=== PATIENT | female | born 1945 | race Caucasian/White ===

== ENCOUNTER 2019-12-07 09:56 | Outpatient (CLI) | payer MEDICARE, BC, SELFPAY ==
--- NOTE | 2019-12-07 10:09 | XR_ITS ---
WS: [id number] RIGHT HIP HISTORY: RIGHT HIP PAIN COMPARISON: None available. Right hip: No acute fracture or dislocation. Mild osteophytic ridging around the acetabulum. Very sli ght irregularity along the surface of the RIGHT hip. Enthesopathy at the greater trochanter. Mild RIGHT SI joint sclerosis. XR/XR hip RT 2-3V wo/w pel* [id number] IMPRESSION: 1. No hip fracture. 2. Mild osteoarthritis RIGHT hip. 3. Mild sacroiliitis, RIGHT.
== END 2019-12-07 09:57 | disposition home or self-care (01) ==
LOC: RADWPI 10:04
PROVIDERS: Family Provider Family Medicine; PCP Nurse Practitioner Family; Visit Provider Nurse Practitioner Family
DX: M16.11 Unilateral primary osteoarthritis, right hip (principal); M46.1 Sacroiliitis, not elsewhere classified
CPT/HCPCS: 73502

== ENCOUNTER 2020-07-12 10:25 | Outpatient (RCR) | payer MEDICARE, BC, SELFPAY | END 2020-07-27 23:59 | disposition home or self-care (01) | LOC: SPT 10:25 | PROVIDERS: PCP Nurse Practitioner Family; Visit Provider Nurse Practitioner Family | DX: R10.31 Right lower quadrant pain (principal) | CPT/HCPCS: 97110; 97161 ==

== ENCOUNTER 2020-07-28 06:00 | Outpatient (RCR) | payer MEDICARE, BC, SELFPAY | END 2020-08-27 23:59 | disposition home or self-care (01) | LOC: SPT 06:00 | PROVIDERS: PCP Nurse Practitioner Family; Visit Provider Nurse Practitioner Family | DX: R10.31 Right lower quadrant pain (principal) | CPT/HCPCS: 97110 ==

== ENCOUNTER 2020-11-22 15:01 | Outpatient (CLI) | payer MEDICARE, SELFPAY ==
--- NOTE | 2020-11-22 15:09 | MM_ITS ---
WS: [id number] BILATERAL DIGITAL SCREENING MAMMOGRAPHY WITH CAD CLINICAL INFORMATION: SCREENING HISTORY: Screening mammogram. No current complaints. COMPARISON: TECHNIQUE: Bilateral CC and MLO views. FINDINGS: The breasts are composed of heterogeneous fibroglandular density tissue, which can limit the detectio n of small underlying mass lesions. No suspicious mass, asymmetry, calcifications, or architectural d istortion. No evidence of malignancy. Dystrophic and lucent centered calcifications. MM/[place] [id number] IMPRESSION: BI-RADS: 2-Benign FOLLOW UP: 1 Year Follow-up Recommend return to annual screening mammography.
== END 2020-11-22 15:02 | disposition home or self-care (01) ==
LOC: RADWPI 15:08
PROVIDERS: PCP Internal Medicine; Visit Provider Internal Medicine
DX: Z12.31 Encounter for screening mammogram for malignant neoplasm of breast (principal)
CPT/HCPCS: 77067

== ENCOUNTER 2021-01-03 09:49 | Outpatient (CLI) | payer MEDICARE, SELFPAY ==
--- NOTE | 2021-01-03 | MR_ITS ---
WS: [id number] MRI LUMBAR SPINE NONCONTRAST HISTORY: DEGENERATIVE DISC DISEASE COMPARISON: 01/09/2016 TECHNIQUE: Sagittal and axial multisequence imaging is submitted. Increase in the cervical lordosis and thoracic kyphosis. Multilevel mild degenerative disc disease an d osteophytosis throughout the cervical and thoracic spines. Mild increase in the lumbar lordosis. L1, L2 and L3 retrolisthesis. Most significant is 5 mm involvin g L2. L5 anterolisthesis by 2 mm is stable. Moderate to severe degenerative disc disease and osteocho ndrosis throughout the lumbar spine in the lower thoracic spine. Mild progression of degenerative clementine nges involving the disc and vertebral body since the prior study. No acute compression fractures. The re is acute appearing edema and soft tissue inflammation surrounding the LEFT L4-5 and L5-S1 facet tiago ints. Conus terminates normally at L1-2 disc level. L1-L2: Diffuse moderate annular disc bulging and osteophytic ridging. Moderate RIGHT foraminal stenos is. Stenosis is due to combination of osteophytes and facet disease. Mild stenosis on the LEFT. L2-L3: Diffuse moderate disc bulging and osteophytic ridging with facet joint arthritis. Effacement o f ventral CSF. Mild central stenosis. Moderate to severe bilateral subarticular and foraminal stenosi s. L3-L4: Moderate diffuse annular disc bulging and osteophytic ridging with facet and ligamentum flavum hypertrophy. Mild central stenosis with severe bilateral subarticular recess foraminal stenosis, LEF T greater than RIGHT. L4-L5: Mild annular disc bulging and osteophytic ridging. Marked facet joint arthritis. Moderate bila teral foraminal stenosis and subarticular recess stenosis. Minimal central stenosis. L5-S1: Mild annular disc bulging, asymmetric to the LEFT. Marked facet joint arthritis. Mild bilatera l foraminal stenosis. Mild atherosclerosis aorta. MR/MR lumbar spine wo con* [id number] IMPRESSION: 1. Advanced degenerative spondylosis throughout the lower thoracic and lumbar spine with moderate progression since 2015. 2. Retrolisthesis of L1-L3. Most significant involving L2 by 5 mm. 3. Multi level areas of significant foraminal, subarticular recess and central stenosis. 4. Moderate to severe bilateral subarticular and foraminal stenosis at L2-3, L 3-4 and L4-5. 5. Moderate RIGHT foraminal stenosis at L1-2. 6. Mild central stenosis at L2-3, L3-4 and L4-5. 7. Acute facet joint arthritis and synovitis on the LEFT at L4-5 and L5-S1.
== END 2021-01-03 09:50 | disposition home or self-care (01) ==
LOC: RADWPI 09:57
PROVIDERS: PCP Internal Medicine; Visit Provider Internal Medicine
DX: M51.36 Other intervertebral disc degeneration, lumbar region (principal); I70.0 Atherosclerosis of aorta; M47.816 Spondylosis without myelopathy or radiculopathy, lumbar region; M47.817 Spondylosis without myelopathy or radiculopathy, lumbosacral region; M48.061 Spinal stenosis, lumbar region without neurogenic claudication; M47.814 Spondylosis without myelopathy or radiculopathy, thoracic region
CPT/HCPCS: 72148

== ENCOUNTER → 2021-01-24 11:38 | Outpatient (BNVA) | payer MEDICARE, SELFPAY | PROVIDERS: PCP Internal Medicine; Referring Provider Internal Medicine; Visit Provider Orthopaedic Surgery | DX: M47.896 Other spondylosis, lumbar region (principal); M48.061 Spinal stenosis, lumbar region without neurogenic claudication; R52 Pain, unspecified | CPT/HCPCS: 72110 ==

== ENCOUNTER → 2021-01-31 10:49 | Outpatient (BNVA) | payer MEDICARE, SELFPAY | PROVIDERS: PCP Internal Medicine; Referring Provider Orthopaedic Surgery; Visit Provider Anesthesiology Pain Medicine | DX: G89.29 Other chronic pain (principal); M48.062 Spinal stenosis, lumbar region with neurogenic claudication; M51.36 Other intervertebral disc degeneration, lumbar region; M47.816 Spondylosis without myelopathy or radiculopathy, lumbar region; M54.16 Radiculopathy, lumbar region; M46.00 Spinal enthesopathy, site unspecified; M54.9 Dorsalgia, unspecified; M79.604 Pain in right leg | CPT/HCPCS: 99205 ==

== ENCOUNTER → 2021-02-13 12:35 | Outpatient (BNVA) | payer MEDICARE, SELFPAY | PROVIDERS: PCP Internal Medicine; Visit Provider Anesthesiology Pain Medicine | DX: G89.29 Other chronic pain (principal); M54.16 Radiculopathy, lumbar region; M54.9 Dorsalgia, unspecified | CPT/HCPCS: 64483; 64484; J1100; J3490 ==

== ENCOUNTER → 2021-04-12 11:46 | Outpatient (BNVA) | payer MEDICARE, SELFPAY | PROVIDERS: PCP Internal Medicine; Visit Provider Orthopaedic Surgery | DX: Z01.818 Encounter for other preprocedural examination (principal); Z20.822 Contact with and (suspected) exposure to COVID-19 | CPT/HCPCS: 87635 ==

== ENCOUNTER 2021-04-17 10:52 | Day surgery (SDC) | payer MEDICARE, SELFPAY ==
[2021-04-14 10:24] VITALS: BMI 31.8
--- NOTE | 2021-04-14 10:28 | ECG_ITS ---
[facility] Test Date: 2021-04-14 Pat Name: Eleanor Yañez Department: Room: Gender: Female Auditor In Charge: : 1945 Requested By: Antoni Salgado Order Number: [id number] Johanna MD: Laila Hanks M.D. Measurements Intervals [place] Rate: 59 P: 24 MT: 132 QRS: 12 QRSD: 81 T: 26 QT: 409 QTc: 408 Interpretive Statements SINUS BRADYCARDIA LOW QRS VOLTAGE IN PRECORDIAL LEADS [QRS DEFLECTION < 1.0 mV IN CHEST LEADS] No previous ECG available for comparison Electronically Signed On 04-14-2021 22:32:43 CDT by Laila Hanks M.D. [id number]
--- NOTE | 2021-04-14 11:48 | ANES.PREANE2 ---
Pre-Anesthetic Assessment Pre-Anesthetic Assessment: Height/Weight: Height 1.6 m Weight 81.647 kg Proposed Procedure: Operation Date: 04/17/21 10:50 Proposed Procedures p Lumbar Spine Decompression L2/3 L3/4 L4/5 46165 61408 61319 M8.062(Not Applicable) - Froy Roth, DO Was Beta Manolo taken within 24 hours: Yes Was Clonidine taken within 24 hours: N/A Social: Social History: No alcohol and No tobacco Exam: Pre-Anes Outpt Exam: alert, oriented x 3, clear to auscultation bilaterally and regular rate & rhythm Airway: Submandibular: WNL Cervical ROM: WNL MP: 2 Dentition: Full CV/HEM: CV/HEM: HTN GI: GI: GERD Metabolic: Metabolic: Morbid obesity Musc/skel: Musc/skel: Lower Back Pain and OA/DJD Anesthetic Plan: ASA status: 3 Anesthesia: General Risk of > 500 ml blood loss (7ml/kg in children): No PFSH Anesthesia PFSH: Social History Smoking and tobacco status: former smoker Second hand smoke exposure: No Alcohol intake: current Alcohol intake frequency: holidays/special occasions only Alcohol type: wine History of recent travel: No Data Anesthesia Cardiac Studies: No Data to Display
[2021-04-17] VITALS (8 sets, daily range): BP systolic 105–152; BP diastolic 66–85; PULSE 66–81; RESP 12–20; TEMP 36.7–37; O2SAT 91–100
--- NOTE | 2021-04-17 | XR_ITS ---
WS: [id number] C-ARM RADIOGRAPHS LUMBAR SPINE; 4 IMAGES HISTORY: lumbar stenosis COMPARISON: None available. Intraoperative imaging during spinal fusion. XR/XR lumbar spine 1V port [id number] IMPRESSION: Intraoperative imaging during spine fusion.
--- NOTE | 2021-04-17 | SCC_ITS ---
Procedure Done: 1. Bilateral L2/3 laminectomy with partial facetectomy 2. Bilateral L3/4 laminectomy with partial facetectomy 3. Bilateral L4/5 laminectomy with partial facetectomy 32.9 seconds of fluoroscopic guidance, for a cumulative dose of 9.76 mGy, was provided to Dr. Roth by the radiology department. C-arm images of the lumbar spine were saved for the patient's permanent record. [facility]
[2021-04-17] MEDS: sodium chloride 0.9% 1,000 ML 30 ML IV (11:56)
--- NOTE | 2021-04-17 12:03 | P.ANESUD_ITS ---
Pre-Anesthetic Update Pre-Anesthetic Assessment: Date of Surgery/Procedure: 04/17/21 Preop Clau gnosis: lumbar stenosis Proposed Procedure: Operation Date: 04/17/21 12:30 Proposed Procedures p Lumbar Spine Decompression L2/3 L3/4 L4/5 83713 60697 77837 M8.062(Not Applicable) - Froy Roth, DO Any changes to Pre-Anesthetic Assessment?: No Vitals: Temperature 98.1 F 04/17/21 11:19 Temperature Source Temporal Artery S can 04/17/21 11:19 Pulse Rate 66 04/17/21 11:19 Respiratory Rate 18 04/17/21 11:19 Blood Pressure 142/66 04/17/21 11:19 Blood Pressure Elif n 91 04/17/21 11:19 Pulse Oximetry 95 04/17/21 11:19 Oxygen Delivery Me thod 04/17/21 11:19 Exam: Pre-Anes Outpt Exam: alert, oriented x 3, clear to auscultation bilaterally and regular rate & rhythm Cardiac Studies: No Data to Display
--- NOTE | 2021-04-17 12:12 | W.PM.OPSUD ---
Surgery/Procedure H&P Update DATE OF PROCEDURE: April 17, 2021 DATE H&P PERFORMED: 04/17/21 PREOP DIAGNOSIS: lumbar stenosis PLANNED PROCEDURE: Operation Date: 04/17/21 12:30 Proposed Procedures p Lumbar Spine Decompression L2/3 L3/4 L4/5 52817 80635 08124 M8.062(Not Applicable) - Froy Roth DO
--- NOTE | 2021-04-17 12:13 | PM.HP ---
Providers/Chief Complaint Primary Care Provider: Stephanie Keita MD Chief Complaint: lumbar stenosis History of Present Illness Eleanor Yañez is a 75 year old female patient here today for evaluation of her lumbar pain Patient states that she has had injections with Dr. Erickson with out any improvement. Patient would like to discuss treatment options in clinic today. Review of Systems Narrative: General ROS: negative for weight changes, fever ENT ROS: negative for nasal congestion, drainage or bleeding, sore throat, dysphagia or ear pain Eyes: PERRL Hematological and Lymphatic ROS: negative for swollen glands or abnormal bleeding Endocrine ROS: negative for polyuria/polydpsia or new changes in weight Respiratory ROS: negative for cough, shortness of breath, or wheezing Cardiovascular ROS: negative for chest pain or dyspnea on exertion Gastrointestinal ROS: negative for reflux, abdominal pain, change in bowel habits, or black or bloody stools Musculoskeletal ROS: negative for back pain, neck pain, or joint pain or swelling except for current problem Neurological ROS: negative for TIA or stoke symptoms Skin: no rashes Medications/Allergies Home Medications Medication Instructions Recorded Confirmed Last Taken Type atorvastatin 20 mg tablet 20 mg PO DAILY 01/24/21 04/17/21 04/17/21 History duloxetine 30 mg capsule,delayed 30 mg PO DAILY 01/24/21 04/17/21 04/17/21 History release esomeprazole magnesium 20 mg 20 mg PO DAILY 01/24/21 04/17/21 04/17/21 History capsule,delayed release fluticasone propionate 50 2 inh INHALATION BID 01/24/21 04/17/21 Unknown History mcg/actuation blister powder for inhalation geriatric [id number] 1 tab PO DAILY 01/24/21 04/17/21 04/10/21 History levocetirizine 5 mg tablet 5 mg PO DAILY 01/24/21 04/17/21 04/16/21 History metoprolol tartrate 50 mg tablet 50 mg PO DAILY 01/24/21 04/17/21 04/16/21 History gabapentin 300 mg capsule 300 mg PO BID #60 cap 02/21/21 04/17/21 04/17/21 Rx cyclobenzaprine 10 mg PO TID PRN 04/17/21 04/17/21 04/03/21 History Allergies Allergy/AdvReac Type Severity Reaction Status Date / Time shrimp Allergy Severe anaphlactyi Verified 04/17/21 11:34 c sulfamethoxazole Allergy Unknown Unknown Verified 04/17/21 11:34 [From Bactrim] trimethoprim [From Bactrim] Allergy Unknown Unknown Verified 04/17/21 11:34 PFSH Acute PFSH: Social History Smoking and tobacco status: former smoker Second hand smoke exposure: No Alcohol intake: current Alcohol intake frequency: holidays/special occasions only Alcohol type: wine History of recent travel: No Vitals/I&O/Wt Last Vital Signs Temp 98.1 F 04/17/21 11:19 Pulse 66 04/17/21 11:19 Resp 18 04/17/21 11:19 BP 142/66 04/17/21 11:19 Pulse Ox 95 04/17/21 11:19 Physical Exam Narrative: EXAM NARRATIVE: CONSTITUTIONAL: The patient is a normal appearing [] in no apparent distress. GENERAL: Patient in no acute distress. CARDIAC: Regular rate and rhythm. CHEST: Normal inspiratory effort, normal respiratory rate. ABDOMEN: Soft and nontender. SKIN: Clear, warm and intact. NEURO?PSYCH: The patient is alert and oriented to person, place and time. Sensorv /SILT Motor StrengthShoulder abduction C5 5/5Wrist extension C6 5/5Elbow extension C7 5/5Hand Credit Card Associate C8 5/5Finger abduction T15/5 Radial/ Ulnar/ Median n intact LowerSensory (SILT)Motor StrengthHin flexion L2/3Ant/inner thigh 5/5Hip adduction L2/3 5/5Knee extension L4 Lat thigh, 5/5Toe dorsiflexion L5 5/5Ankle dorsiflexion L5/ O43Gdnkomt flexion S1 5/5 DTRBleeps 2+Triceps 2+Brachioradialis 2+Patellar 2+Achilles 2+ MUSCULOSKELETAL: [] UPPEREXTREMITIES: The patient had full active ROM in fingers, wrist, elbow, and shoulder. The patient demonstrated ability to fully flex/extend/abduct/adduct fingers, make ok sign, cross 2nd/3rd digits, extend 1st digit fully.. Radial pulse 2+, CR<2 seconds. LOWER EXTREMITIES: Pt has full, active ROM of toes, ankle, knee, and hip. Dorsalis pedis/posterior tibialis pulses 2+, CR<2 seconds. SPINE: Skin warm, dry, intact. A&P Assessment and plan (1) Lumbar stenosis with neurogenic claudication: lumbar decompression Status: Acute Attestations Medical Necessity Statement*: failed conservative tx Coding Level of Care Code Acute Construction Executive for Chg Fwd Diagnoses Lumbar stenosis with neurogenic claudication M48.062
--- NOTE | 2021-04-17 14:42 | PM.OP ---
Operative Report Date of procedure: April 17, 2021 Pre-op Diagnosis: lumbar stenosis Post-op diagnosis: same Procedure Done: 1. Bilateral L2/3 laminectomy with partial facetectomy 2. Bilateral L3/4 laminectomy with partial facetectomy 3. Bilateral L4/5 laminectomy with partial facetectomy Surgeon: Froy Roth Anesthesia: General Estimated blood loss (mL): 5 Condition: stable Disposition: PACU Procedure: 1. Bilateral L2/3 laminectomy with partial facetectomy 2. Bilateral L3/4 laminectomy with partial facetectomy 3. Bilateral L4/5 laminectomy with partial facetectomy Patient is brought to the operative suite. After undergoing anesthesia they are placed in the supine position. All areas of impingement are well padded. Patient is then prepped and draped in the normal sterile fashion. A skin incision is made over the L2/3 level. This is confirmed under c-arm guidance. A series of dilators are passed and the tubular retractor is docked on the L2 lamina. A bovie is used to clear the soft tissue off the lamina and the L 2/3 facet joint. A high speed chivo is then used to perform the laminectomy and take down the medial aspect of the L 2/3 facet joint. A kerrison rongeure was then used to take down the remaining lamina and smooth the edged of the laminectomy up to the point where the ligamentum flavum attaches. Attention was then brought to the medial aspect of the facet joint. The remaining medial aspect of the superior and inferior aspect of the facet joint were taken down with the kerrison from the pedicle of L2 to L 3. The facet joint had significant hypertrophy. Attention was then brought to the Ligamentum Flavum. The ligament was taken down from the lamina of L2 to L3 and out medially to the remaining facet joint. The ligament was thick. The dura was then exposed. The dura was in good repair. The L2 nerve was then traced with a curette out the L2/3 foramen and found to be adequately decompressed. The L3 nerve was traced with a curette around the L3 pedicle. The lateral recess was opened with a kerrison helping to further decompress the L3 nerve. The tubular retractor was then tilted to the contralateral side. The bovie was used to take down the soft tissue on the spinous process. The high speed chivo was used to take down the spinous process and then the contralateral lamina of L2. The kerrison rongeur was used to take down the remaining lamina to the point where the ligamentum flavum attached and the ligamentum flavum was taken down from L2 to L3. The kerrison rongeur was then used to reach across and take down the medial aspect of the contralateral L2/3 facet joint.The currete was used to trace the contralateral L2 nerve out the L2/3 foramen to make sure it was decompressed adequatesly and the L3 was traced around the L3 pedicle. The lateral recess was opened further with the kerrison to ensure the L3 is adequately decompressed. Wound is then irrigated copiously with saline and surgiflo is used to stop any bleeding. The tubular retractor is removed A skin incision is made over the L3/4 level. This is confirmed under c-arm guidance. A series of dilators are passed and the tubular retractor is docked on the L3 lamina. A bovie is used to clear the soft tissue off the lamina and the L 3/4 facet joint. A high speed chivo is then used to perform the laminectomy and take down the medial aspect of the L 3/4 facet joint. A kerrison rongeure was then used to take down the remaining lamina and smooth the edged of the laminectomy up to the point where the ligamentum flavum attaches. Attention was then brought to the medial aspect of the facet joint. The remaining medial aspect of the superior and inferior aspect of the facet joint were taken down with the kerrison from the pedicle of L3 to L 4. The facet joint had significant hypertrophy. Attention was then brought to the Ligamentum Flavum. The ligament was taken down from the lamina of L3 to L4 and out medially to the remaining facet joint. The ligament was thick and calcified. The dura was then exposed. The dura was in good repair. The L4 nerve was then traced with a curette out the L3/4 foramen and found to be adequately decompressed. The L4 nerve was traced with a curette around the L4 pedicle. The lateral recess was opened with a kerrison helping to further decompress the L4 nerve. The tubular retractor was then tilted to the contralateral side. The bovie was used to take down the soft tissue on the spinous process. The high speed chivo was used to take down the spinous process and then the contralateral lamina of L3. The kerrison rongeur was used to take down the remaining lamina to the point where the ligamentum flavum attached and the ligamentum flavum was taken down from L3 to L4. The kerrison rongeur was then used to reach across and take down the medial aspect of the contralateral L3/4 facet joint.The currete was used to trace the contralateral L3 nerve out the L3/4 foramen to make sure it was decompressed adequatesly and the L4 was traced around the L4 pedicle. The lateral recess was opened further with the kerrison to ensure the L4 is adequately decompressed. Wound is then irrigated copiously with saline and surgiflo is used to stop any bleeding. The tubular retractor is removed A skin incision is made over the L4/5 level. This is confirmed under c-arm guidance. A series of dilators are passed and the tubular retractor is docked on the L4 lamina. A bovie is used to clear the soft tissue off the lamina and the L 4/5 facet joint. A high speed chivo is then used to perform the laminectomy and take down the medial aspect of the L 4/5 facet joint. A kerrison rongeure was then used to take down the remaining lamina and smooth the edged of the laminectomy up to the point where the ligamentum flavum attaches. Attention was then brought to the medial aspect of the facet joint. The remaining medial aspect of the superior and inferior aspect of the facet joint were taken down with the kerrison from the pedicle of L4 to L 5. The facet joint had significant hypertrophy. Attention was then brought to the Ligamentum Flavum. The ligament was taken down from the lamina of L4 to L5 and out medially to the remaining facet joint. The ligament was thick. The dura was then exposed. The dura was in good repair. The L4 nerve was then traced with a curette out the L4/5 foramen and found to be adequately decompressed. The L5 nerve was traced with a curette around the L5 pedicle. The lateral recess was opened with a kerrison helping to further decompress the L5 nerve. The tubular retractor was then tilted to the contralateral side. The bovie was used to take down the soft tissue on the spinous process. The high speed chivo was used to take down the spinous process and then the contralateral lamina of L4. The kerrison rongeur was used to take down the remaining lamina to the point where the ligamentum flavum attached and the ligamentum flavum was taken down from L4 to L5. The kerrison rongeur was then used to reach across and take down the medial aspect of the contralateral L4/5 facet joint.The currete was used to trace the contralateral L4 nerve out the L4/5 foramen to make sure it was decompressed adequatesly and the L55 was traced around the L5 pedicle. The lateral recess was opened further with the kerrison to ensure the L5 is adequately decompressed. Wound is then irrigated copiously with saline and surgiflo is used to stop any bleeding. The tubular retractor is removed and the wound is closed with vicryl and monocryl suture. Glue is then used to protect the wound. A sterile dressing is then placed. Patient was then placed in the supine position and transferred to the PACU in stable condition.
--- NOTE | 2021-04-17 15:50 | ANE.PACU2 ---
Inpatient post-anesthesia follow up: Airway intact: Yes Vital signs: Temperature 98.6 F Pulse Rate 67 Respiratory Rate 18 Blood Pressure 109/69 Pulse Oximetry 91 Oxygen Delivery Me thod Room Air Oxygen Flow Rate 6 Fraction of Inspir ed Oxygen Hydration adequate: Yes Nausea and vomiting: No Pain level: 2 Mental status: Baseline
[2021-04-17] MEDS: HYDROcodone-acetaminophen 5-325 mg Tablet 1 TAB PO (16:05)
== END 2021-04-17 16:18 | disposition home or self-care (01) ==
PROVIDERS: PCP Internal Medicine; Visit Provider Orthopaedic Surgery
PROC: (CPT 63005; principal; 2021-04-17 12:10)
DX: M48.062 Spinal stenosis, lumbar region with neurogenic claudication (principal); Z87.891 Personal history of nicotine dependence; I10 Essential (primary) hypertension; K21.9 Gastro-esophageal reflux disease without esophagitis; E66.01 Morbid (severe) obesity due to excess calories; Z68.31 Body mass index [BMI] 31.0-31.9, adult
CPT/HCPCS: 63047; 63048 ×2; 72020; 76000; 93005; J0690; J1100; J2405; J2704; J2710; J3010; J3490; J7030

== ENCOUNTER 2021-06-08 09:23 | Outpatient (RCR) | payer MEDICARE, SELFPAY | END 2021-06-27 23:59 | disposition home or self-care (01) | LOC: SPT 09:23 | PROVIDERS: PCP Internal Medicine; Visit Provider Orthopaedic Surgery | DX: Z47.89 Encounter for other orthopedic aftercare (principal) | CPT/HCPCS: 97110; 97161 ==

== ENCOUNTER 2021-06-28 06:00 | Outpatient (RCR) | payer MEDICARE, SELFPAY | END 2021-07-27 23:59 | disposition home or self-care (01) | LOC: SPT 06:00 | PROVIDERS: PCP Internal Medicine; Visit Provider Orthopaedic Surgery | DX: Z47.89 Encounter for other orthopedic aftercare (principal) | CPT/HCPCS: 97110 ==

== ENCOUNTER 2021-09-26 10:31 | Outpatient (CLI) | payer MEDICARE, SELFPAY ==
--- NOTE | 2021-09-26 10:37 | XR_ITS ---
WS: [id number] LEFT KNEE: 4 VIEW(S) TECHNIQUE: AP, oblique(s) and lateral. HISTORY: KNEE PAIN, LEFT COMPARISON: None available. No fracture or dislocation. No joint space narrowing or osteophytes. No joint effusion. No soft tissue abnormality. XR/XR knee LT 4V [id number] IMPRESSION: Normal LEFT knee.
== END 2021-09-26 10:32 | disposition home or self-care (01) ==
PROVIDERS: PCP Internal Medicine; Visit Provider Nurse Practitioner Family
DX: M25.562 Pain in left knee (principal)
CPT/HCPCS: 73564

== ENCOUNTER 2021-11-16 08:07 | Outpatient (CLI) | payer MEDICARE, SELFPAY ==
--- NOTE | 2021-11-16 08:45 | MR_ITS ---
WS: [id number] MRI LEFT KNEE HISTORY: LEFT KNEE PAIN COMPARISON: LEFT knee 09/26/2021. Anterior cruciate ligament: Intact. Posterior cruciate ligament: Very mild buckling and intrasubstance degeneration but no tear. Medial collateral ligament: Small amount of fluid along the length of the MCL. No tear. Posterior lateral corner structures: Intact. Medial menisci: Shape of the meniscus is normal. There is increased signal within the meniscus but no definite tear is identified. There is fraying along the articular surfaces of the meniscus. Anterior horn is normal. Lateral meniscus: Abnormal signal in the posterior horn towards the meniscal root. Surface of the pos terior horn meniscus is abnormal with increased signal. Anterior horn is small caliber. Extensor mechanism: Distal quadriceps tendon and patellar tendons are intact. Fluid and soft tissue: There is a very large suprapatellar joint effusion. Very tiny amount of fluid in the expected location of Rojas's cyst. Osseous and articular structures: Patellofemoral compartment: Moderate chondromalacia of the patella. No marrow edema or fracture. Medial compartment: Mild narrowing of the medial compartment. There is moderate thinning and fissurin g of the cartilage. No fracture or marrow edema. Lateral compartment: Moderate narrowing of the lateral compartment with thinning and fissuring of the cartilage. There is a more focal 5 mm defect in the cartilage along the weightbearing surface of the lateral femoral condyle. There is marrow edema involving the posterior lateral tibial plateau. There is slight interruption of the cortex along the posterior tibial plateau best seen on the sagittal pr oton density sequence. This is also the site of the meniscal abnormality. MR/MR knee LT wo con* [id number] IMPRESSION: 1. Focal marrow edema in the posterior lateral tibial plateau. There is a very slight interruption of the cortex consistent with a fracture. 2. Complex tear posterior horn of the lateral meniscus. This is at the same lo cation as the bone injury. 3. Large suprapatellar effusion. 4. Medial and lateral compartment joint space narrowing with mild thinning and fissuring of the cartilage throughout. 5. Mild MCL sprain.
== END 2021-11-16 08:08 | disposition home or self-care (01) ==
LOC: RADSHAW 08:17
PROVIDERS: PCP Internal Medicine; Visit Provider Internal Medicine
DX: R60.0 Localized edema (principal); S83.272A Complex tear of lateral meniscus, current injury, left knee, initial encounter; S83.412A Sprain of medial collateral ligament of left knee, initial encounter; X58.XXXA Exposure to other specified factors, initial encounter; M25.462 Effusion, left knee
CPT/HCPCS: 73721

== ENCOUNTER → 2021-12-25 10:59 | Outpatient (BNVA) | payer MEDICARE, SELFPAY | PROVIDERS: PCP Internal Medicine; Visit Provider Orthopaedic Surgery | DX: Z20.822 Contact with and (suspected) exposure to COVID-19 (principal) | CPT/HCPCS: 87635 ==

== ENCOUNTER → 2022-01-05 00:01 | Outpatient (BNVA) | payer MEDICARE, SELFPAY | PROVIDERS: PCP Internal Medicine; Visit Provider Orthopaedic Surgery | DX: Z20.822 Contact with and (suspected) exposure to COVID-19 (principal); Z01.812 Encounter for preprocedural laboratory examination | CPT/HCPCS: 87635 ==

== ENCOUNTER 2022-01-11 12:53 | Day surgery (SDC) | payer MEDICARE, SELFPAY ==
[2021-12-27 11:42] VITALS: BMI 31.1
[2022-01-11] VITALS (8 sets, daily range): BP systolic 86–147; BP diastolic 67–95; PULSE 62–87; RESP 16–18; TEMP 36.3; O2SAT 94–100
--- NOTE | 2022-01-11 13:27 | ANES.PREANE2 ---
Pre-Anesthetic Assessment Height/Weight: Height 1.6 m Weight 79.832 kg Preop Diagnosis: lumbar stenosis Operation Date: 12/28/21 20:00 Proposed Procedures p Left Knee Arthroscopy 73966/s83.289a(Left) - Riccardo Serna MD Operation Date: 01/11/22 14:40 Proposed Procedures p Left Knee Arthroscopy 80806/s83.289a(Left) - Riccardo Serna MD Familial anesthetic complications: None Was Beta Manolo taken within 24 hours: Yes Was Clonidine taken within 24 hours: N/A Social No alcohol and No tobacco Exam alert, oriented x 3, clear to auscultation bilaterally and regular rate & rhythm Airway Submandibular: within normal limits Cervical ROM: within normal limits Mallampati: Class I Dentition: full History/ROS No significant complaints Pulmonary None reported CV/HEM None reported None reported Hepatic None reported GI Gastroesophageal Reflux Disease and Hiatal Hernia Metabolic None reported Musc/skel Lower Back Pain and Osteoarthritis/DJD Meniscus tear Neuropsych Neuropathy (B/L LE) and None reported Anesthetic Plan ASA status: 2 Anesthesia: Anesthesia Evaluation and General Other: We discussed risk and benefits of general anesthesia including PONV, sore throat (sometimes severe), corneal abrasion, positioning and peripheral nerve injuries, life threatening allergic reaction, post operative ICU admission requiring prolonged intubation, stroke, heart attack, , and rare incidences of recall. Patient consents to proceed with general anesthesia. Risk of > 500 ml blood loss (7ml/kg in children): No Medications/Allergies Home Medications Medication Instructions Recorded Confirmed Last Taken Type atorvastatin 20 mg tablet 20 mg PO DAILY 01/24/21 12/27/21 04/17/21 History duloxetine 30 mg capsule,delayed 30 mg PO DAILY 01/24/21 12/27/21 04/17/21 History release (Cymbalta) esomeprazole magnesium 20 mg 20 mg PO DAILY 01/24/21 12/27/21 04/17/21 History capsule,delayed release (Nexium) fluticasone propionate 50 2 inh INHALATION BID 01/24/21 12/27/21 Unknown History mcg/actuation blister powder for inhalation geriatric [id number]-[id number]-ghmc 1 tab PO DAILY 01/24/21 12/27/21 04/10/21 History levocetirizine 5 mg tablet 5 mg PO DAILY 01/24/21 12/27/21 04/16/21 History metoprolol tartrate 50 mg tablet 50 mg PO BID 01/24/21 12/27/21 04/16/21 History gabapentin 300 mg capsule 300 mg PO BID #60 cap 02/21/21 12/27/21 04/17/21 Rx cyclobenzaprine 10 mg tablet 10 mg PO TID PRN 04/17/21 12/27/21 04/03/21 History hydrocodone 5 mg-acetaminophen 325 1 - 2 tab PO .Q4-6H PRN 7 Days #40 05/04/21 12/27/21 Unknown Rx mg tablet tab Walker #1 ea 12/20/21 12/20/21 Unknown Rx Allergies Allergy/AdvReac Type Severity Reaction Status Date / Time shrimp Allergy Severe anaphlactyi Verified 12/27/21 11:39 c sulfamethoxazole Allergy Unknown Unknown Verified 12/27/21 11:39 [From Bactrim] trimethoprim [From Bactrim] Allergy Unknown Unknown Verified 12/27/21 11:39 PFSH Anesthesia Social History Smoking and tobacco status: former smoker (40 years ) Second hand smoke exposure: No Alcohol intake: current Alcohol intake frequency: holidays/special occasions only Alcohol type: wine History of recent travel: No Data Anesthesia Cardiac Studies: No Data to Display
[2022-01-11] MEDS: sodium chloride 0.9% 1,000 ML 30 ML IV (15:00)
--- NOTE | 2022-01-11 16:02 | W.PM.OPSUD ---
Surgery/Procedure H&P Update DATE OF PROCEDURE: January 11, 2022 DATE H&P PERFORMED: 12/20/21 PREOP DIAGNOSIS: Knee Lateral meniscal tear PLANNED PROCEDURE: Operation Date: 12/28/21 20:00 Proposed Procedures p Left Knee Arthroscopy 52841/s83.289a(Left) - Riccardo Serna MD Operation Date: 01/11/22 14:40 Proposed Procedures p Left Knee Arthroscopy 99832/s83.289a(Left) - Riccardo Serna MD
[2022-01-11] MEDS: morphine 4 mg/mL SDV 1 mL 8 MG XX (16:51)
--- NOTE | 2022-01-11 17:19 | P.OP_ITS ---
Operative Report Date of procedure: January 11, 2022 Pre-op diagnosis: Preop Diagnosis Knee Lateral meniscal tear Post-op diagnosis: Left lateral meniscal tear, chondromalacia medial femoral condyle, lateral femoral condyle, trolled Procedure done: Arthroscopic left partial lateral meniscectomy, chondroplasty medial femoral condyle, chondroplasty patella Pathology: none sent Surgeon: Riccardo Serna Anesthesia: General Estimated blood loss (mL): 5 Tourniquet time (min): 14 Findings: Eleanor had complex tearing involving the central 50% of her lateral meniscus consisting of complex degenerative tearing. She had fibrillation flaps and thinning over the medial femoral condyle, lateral femoral condyle and trochlea with spotty areas of subchondral bone over each and peripheral unstable flaps and fissures Condition: stable Disposition: PACU Brief History: Eleanor developed acute left knee pain when she twisted her knee going down steps in August 2021. An MRI suggested lateral meniscal tearing. He was taken to the operating room for partial lateral meniscectomy and other indicated procedures to improve pain and function Procedure: Eleanor was taken to the operating room. She was given a general anesthesia and prepped and draped in the supine position. The knee was infiltrated with 30 cc of half percent Marcaine with epi and 10 mg of morphine. A timeout was perfo rmed. The knee was entered through a standard inferior medial and inferior lateral portal. The diagnostic portion arthroscopy was performed above findings noted. Initial attention was paid to the complex tearing the lateral meniscus. Utilizing a straight basket particular in the middle third unstable flaps and fissures were debrided back. The rim was cleaned up with an incisor shaver and [employer] Werewolf probe leaving approximately 50% of the meniscus behind. Unstable flaps and fissures were identified over the lateral femoral condyle. Utilizing incisor shaver and [employer] Werewolf probe these flaps were debrided back. Spotty areas of subchondral bone were identified. Attention was then focused on the medial femoral condyle and medial compartment. The medial meniscus was probed and found to be healthy. Unstable flaps and fissures were debrided back with the werewolf probe throughout the weightbearing aspect the medial femoral condyle. There is marked thinning and spotty areas of subchondral bone identified after debridement. Final attention was focused on the patella and trochlea. Generalized softening the patella was noted. In the central trochlea there was a partial-thickness cartilage loss and flaps. Utilizing the werewolf probe this was debrided back to a stable rim. The knee was irrigated with saline. Portals were closed with 3-0 Prolene. Sterile dressings were applied. The patient was extubated and taken to recovery in stable condition.
--- NOTE | 2022-01-22 11:41 | ANE.PACU2 ---
Inpatient post-anesthesia follow up: Airway intact: Yes Vital signs: Temperature 97.4 F Pulse Rate 84 Respiratory Rate 18 Blood Pressure 147/67 Pulse Oximetry 95 Oxygen Delivery Me thod Room Air Oxygen Flow Rate 6 Fraction of Inspir ed Oxygen Hydration adequate: Yes Nausea and vomiting: No Pain level: 1 Mental status: Baseline Additional Comments: Late entry for care provided on DOS
== END 2022-01-11 18:15 | disposition home or self-care (01) ==
PROVIDERS: PCP Internal Medicine; Visit Provider Orthopaedic Surgery
PROC: (CPT 29870; principal; 2021-12-28 20:00)
DX: S83.282A Other tear of lateral meniscus, current injury, left knee, initial encounter (principal); X58.XXXA Exposure to other specified factors, initial encounter; K21.9 Gastro-esophageal reflux disease without esophagitis; M19.90 Unspecified osteoarthritis, unspecified site; Z87.891 Personal history of nicotine dependence
CPT/HCPCS: 29881; J0330; J0690; J1100; J1170; J1200; J2270; J2405; J2704; J3010; J3490; J7030

== ENCOUNTER 2022-02-12 10:02 | Outpatient (CLI) | payer MEDICARE, SELFPAY ==
--- NOTE | 2022-02-12 10:09 | MM_ITS ---
WS: [id number] BILATERAL SCREENING 3D TOMOSYNTHESIS DIGITAL MAMMOGRAM WITH CAD HISTORY: SCREENING COMPARISON: 09/10/2019 and 11/22/2020 Bilateral CC and MLO views submitted. Computer aided detection analyzed. Breast composition: There are scattered areas of fibroglandular density. No suspicious masses, microc alcifications or architectural distortion. Coarse calcifications in each breast. Architectural distor tion in each breast from prior mammoplasty. RIGHT MLO is suboptimal. Very small portion of the pector harpal muscle is included. MM/[place] [id number] IMPRESSION: BI-RADS: 2-Benign FOLLOW UP: 1 Year Follow-up
== END 2022-02-12 10:03 | disposition home or self-care (01) ==
LOC: RAD 10:05
PROVIDERS: PCP Internal Medicine; Visit Provider Internal Medicine
DX: Z12.31 Encounter for screening mammogram for malignant neoplasm of breast (principal)
CPT/HCPCS: 77063; 77067

== ENCOUNTER → 2022-02-20 13:02 | Outpatient (BNVA) | payer MEDICARE, SELFPAY | PROVIDERS: PCP Internal Medicine; Visit Provider Orthopaedic Surgery | DX: M17.12 Unilateral primary osteoarthritis, left knee (principal); Z87.891 Personal history of nicotine dependence | CPT/HCPCS: 20610; J0702; J3490 ==

== ENCOUNTER → 2022-07-10 09:25 | Outpatient (BNVA) | payer MEDICARE, SELFPAY | PROVIDERS: PCP Internal Medicine; Visit Provider Nurse Practitioner Family | DX: M17.12 Unilateral primary osteoarthritis, left knee (principal) | CPT/HCPCS: 20610; 99213; J7325 ==

== ENCOUNTER 2023-03-05 11:10 | Outpatient (CLI) | payer MEDICARE, SELFPAY ==
--- NOTE | 2023-03-05 11:38 | XRR_ITS ---
PROCEDURE INFORMATION: Exam: XR Chest Exam date and time: 03/05/2023 11:41 AM Age: 77 years old Clinical indication: Cough; Prior surgery; Surgery date: 6+ months; Surgery type: Breast TECHNIQUE: Imaging protocol: Radiologic exam of the chest. Views: 2 views. COMPARISON: CR XR chest 2V* [id number] 10/18/2016 2:14 PM FINDINGS: Lungs: No consolidation. Pleural spaces: Unremarkable. No pleural effusion. No pneumothorax. Heart/Mediastinum: No cardiomegaly. Stable small hiatal hernia. Bones/joints: No acute findings. XR/XR chest 2V* [id number] IMPRESSION: No acute findings.
== END 2023-03-05 11:11 | disposition home or self-care (01) ==
PROVIDERS: PCP Internal Medicine; Visit Provider Nurse Practitioner Family
DX: R05.9 Cough, unspecified (principal)
CPT/HCPCS: 71046

== ENCOUNTER 2023-06-17 12:08 | Outpatient (CLI) | payer MEDICARE, SELFPAY ==
--- NOTE | 2023-06-17 12:22 | XR_ITS ---
WS: [id number] EXAMINATION: XR ankle LT min 3V* [id number] REASON FOR EXAM: PAIN OF LEFT ANKLE JOINT COMPARISON: None available. ORDER DATE: 06/17/2023 12:41 PM TECHNIQUE: 3 views of the left ankle were obtained. X-RAY FINDINGS: Patchy sclerotic changes present in the tip of the medial malleolus of uncertain sign ificance. This is likely degenerative in nature with ankle mortise narrowing and marginal osteophytes at the medial and lateral malleoli. There is circumferential soft tissue edema which is most marked laterally. A 6 mm plantar calcaneal spur is noted. IMPRESSION: Osteoarthritis as noted with considerable soft tissue edema which may be secondary or probably partly related to the known proximal fifth metatarsal fracture.
== END 2023-06-17 12:09 | disposition home or self-care (01) ==
PROVIDERS: PCP Internal Medicine; Visit Provider Nurse Practitioner Family
DX: M19.072 Primary osteoarthritis, left ankle and foot (principal)
CPT/HCPCS: 73610

== ENCOUNTER 2023-06-20 14:47 | Outpatient (CLI) | payer MEDICARE, SELFPAY | END 2023-06-20 14:48 | disposition home or self-care (01) | LOC: SPT 14:48 | PROVIDERS: PCP Internal Medicine; Visit Provider Podiatrist Foot & Ankle Surgery | DX: Z46.89 Encounter for fitting and adjustment of other specified devices (principal); S93.402D Sprain of unspecified ligament of left ankle, subsequent encounter; X58.XXXD Exposure to other specified factors, subsequent encounter; M20.42 Other hammer toe(s) (acquired), left foot | CPT/HCPCS: 97760; 99203; L1902 ==

== ENCOUNTER → 2023-07-09 10:18 | Outpatient (BNVA) | payer MEDICARE, SELFPAY | PROVIDERS: PCP Internal Medicine; Visit Provider Podiatrist Foot & Ankle Surgery | DX: S93.402A Sprain of unspecified ligament of left ankle, initial encounter; X50.1XXA Overexertion from prolonged static or awkward postures, initial encounter; M20.42 Other hammer toe(s) (acquired), left foot | CPT/HCPCS: 73630; 99213 ==

== ENCOUNTER → 2023-07-11 14:02 | Outpatient (BNVA) | payer MEDICARE, SELFPAY | PROVIDERS: PCP Internal Medicine; Visit Provider Dermatology | DX: L82.1 Other seborrheic keratosis (principal); L71.8 Other rosacea; L57.0 Actinic keratosis; D22.0 Melanocytic nevi of lip; L82.0 Inflamed seborrheic keratosis; L81.4 Other melanin hyperpigmentation; L91.8 Other hypertrophic disorders of the skin | CPT/HCPCS: 11200; 17000; 17003; 17110; 99213 ==

== ENCOUNTER 2023-08-07 10:00 | Outpatient (CLI) | payer MEDICARE, SELFPAY ==
--- NOTE | 2023-08-07 10:05 | MM_ITS ---
WS: [id number] BILATERAL SCREENING DIGITAL TOMOSYNTHESIS MAMMOGRAM WITH CAD HISTORY: SCREENING, history of bilateral breast reduction. COMPARISON: 02/12/2022 and 11/22/2020 Bilateral CC and MLO views with tomosynthesis and synthetic mammography submitted. Computer aided det ection analyzed. Breast composition: There are scattered areas of fibroglandular density. No suspicious masses, microc alcifications or architectural distortion. Benign calcifications in each breast. Focal area of distor tion in the medial LEFT breast is probably related to the prior mammoplasty. IMPRESSION: MM/[place] [id number] BI-RADS: 2-Benign FOLLOW UP: 1 Year Follow-up
== END 2023-08-07 10:01 | disposition home or self-care (01) ==
LOC: RAD 10:00
PROVIDERS: PCP Internal Medicine; Visit Provider Internal Medicine
DX: Z12.31 Encounter for screening mammogram for malignant neoplasm of breast (principal)
CPT/HCPCS: 77063; 77067

== ENCOUNTER → 2023-11-14 14:47 | Outpatient (BNVA) | payer MEDICARE, SELFPAY | PROVIDERS: PCP Internal Medicine; Visit Provider Dermatology | DX: L82.0 Inflamed seborrheic keratosis (principal); L81.4 Other melanin hyperpigmentation; D22.5 Melanocytic nevi of trunk | CPT/HCPCS: 17110; 99213 ==

== ENCOUNTER 2024-02-07 12:13 | Outpatient (CLI) | payer MEDICARE, SELFPAY ==
--- NOTE | 2024-02-07 12:21 | XR_ITS ---
WS: [id number] Left knee, 4 views, 02/07/2024 Clinical Data: BILATERAL KNEE PAIN Comparison: Left knee, 09/26/2021 Findings: No fractures or dislocations are seen. There is lateral joint space narrowing with sclerosis of the a rticular surface of the lateral tibial plateau. There is sclerosis of the adjoining lateral femoral c ondyle. There are spurs of the lateral and medial femoral condyle and lateral tibial plateau. The pos terior left patella demonstrates posterior spurs. The soft tissues are unremarkable. Impression: 1. Moderate osteoarthritis of the left knee. 2. Narrowing of the lateral joint compartment, multiple spurs and spurs of the posterior left patella . Kellgren-Hermes Classification: grade 3 (moderate): moderate multiple osteophytes, definite narrowi ng of joint space and some sclerosis and possible deformity of bone ends
--- NOTE | 2024-02-07 12:21 | XR_ITS ---
WS: [email or web address] Right knee, 4 views, 02/07/2024 Clinical Data: BILATERAL KNEE PAIN Comparison: None Findings: No fractures or dislocations are seen. There is medial joint compartment narrowing with spurring of t he medial and lateral femoral condyles and medial and lateral tibial plateau. The posterior right pat melanie shows spurring. The soft tissues are unremarkable. Impression: Moderate osteoarthritis of the right knee. Kellgren-Hermes Classification: grade 3 (moderate): moderate multiple osteophytes, definite narrowi ng of joint space and some sclerosis and possible deformity of bone ends
== END 2024-02-07 12:14 | disposition home or self-care (01) ==
LOC: RAD 12:14
PROVIDERS: PCP Internal Medicine; Visit Provider Internal Medicine
DX: M25.561 Pain in right knee (principal); M25.562 Pain in left knee; M17.0 Bilateral primary osteoarthritis of knee; M76.52 Patellar tendinitis, left knee
CPT/HCPCS: 73564

== ENCOUNTER → 2024-03-26 09:37 | Outpatient (BNVA) | payer MEDICARE, SELFPAY | PROVIDERS: PCP Internal Medicine; Referring Provider Internal Medicine; Visit Provider Student in an Organized Health Care Education/Training Program | DX: M17.0 Bilateral primary osteoarthritis of knee | CPT/HCPCS: 20610; 73560; 73565; 99204; J3301 ==

== ENCOUNTER → 2024-04-06 11:16 | Outpatient (BNVA) | payer MEDICARE, SELFPAY | PROVIDERS: PCP Internal Medicine; Visit Provider Podiatrist Foot & Ankle Surgery | DX: S93.402A Sprain of unspecified ligament of left ankle, initial encounter (principal); M20.42 Other hammer toe(s) (acquired), left foot; X58.XXXA Exposure to other specified factors, initial encounter | CPT/HCPCS: 99214 ==

== ENCOUNTER 2024-04-22 08:01 | Day surgery (SDC) | payer MEDICARE, SELFPAY ==
--- NOTE | 2024-04-22 | XR_ITS ---
WS: [id number] XR ankle LT 2V [id number] REASON FOR EXAM: AMAYA PICS FINDINGS: Surgical device overlying the mid/posterior talus on the lateral view. No significant widening of the medial clear space with valgus stress. XR/XR ankle LT 2V [id number] IMPRESSION: Intraoperative images as above.
[2024-04-22 08:48] VITALS: BMI 30.1
[2024-04-22] MEDS: acetaminophen 1,000 MG/100 ML PIGGYBACK 400 MG IV (09:10)
--- NOTE | 2024-04-22 09:10 | ECG_ITS ---
[facility] Test Date: 2024-04-22 Pat Name: Eleanor Yañez Department: Room: Gender: Female Pearl Technician: : 1945 Requested By: Millicent Lutz Order Number: [id number] Johanna MD: French Ballesteros M.D. Measurements Intervals [place] Rate: 57 P: 1 MA: 133 QRS: 6 QRSD: 85 T: 15 QT: 422 QTc: 412 Interpretive Statements SINUS BRADYCARDIA Compared to ECG 04/14/2021 10:36:24 No significant changes Electronically Signed On 04-23-2024 0:17:13 CDT by French Ballesteros M.D. [id number]
[2024-04-22] MEDS: sodium chloride 0.9% 1,000 ML 30 ML IV (09:16)
[2024-04-22] MEDS: gabapentin 300 mg Capsule PO (09:18)
[2024-04-22] MEDS: famotidine 20 mg/2 mL INJ IVP (09:37)
--- NOTE | 2024-04-22 10:02 | SUR.PREOP ---
0953-Time out was performed at bedside in OPS with Dr Lutz for a nerve block. Patient was on monitor and all VS were WNL. Patient tolerated well.
--- NOTE | 2024-04-22 10:03 | ANES.PREANE2 ---
Pre-Anesthetic Assessment Height/Weight: Height 1.6 m Weight 77.111 kg O2 Del Method Room Air 04/22/24 08:36 Preop Diagnosis: Left ankle instability Operation Date: 04/22/24 09:45 Proposed Procedures p Brostrom Procedure/ Left ankle modified brostrom with internal brace(Left) - Craig Hutchins DPM Familial anesthetic complications: None Was Beta Manolo taken within 24 hours: N/A Was Clonidine taken within 24 hours: N/A Last intake: Intake Last Liquid Date 04/21/24 Last Liquid Time 20:00 Last Solid Date 04/21/24 Last Solid Time 18:00 Social No alcohol and No tobacco Exam alert, oriented x 3, clear to auscultation bilaterally and regular rate & rhythm Airway Mallampati: Class II Dentition: full CV/HEM Hypertension GI Gastroesophageal Reflux Disease and Hiatal Hernia Metabolic Hyperlipidemia Anesthetic Plan ASA status: 2 Anesthesia: General and Regional (specify below) Risk of > 500 ml blood loss (7ml/kg in children): No Medications/Allergies Home Medications Medication Instructions Recorded Confirmed Last Taken Type atorvastatin 20 mg tablet 20 mg PO DAILY 01/24/21 04/21/24 04/21/24 History duloxetine 30 mg capsule,delayed 30 mg PO DAILY 01/24/21 04/21/24 04/21/24 History release (Cymbalta) esomeprazole magnesium 20 mg 20 mg PO DAILY 01/24/21 04/21/24 04/21/24 History capsule,delayed release (Nexium) fluticasone propionate 50 2 inh inhalation BID PRN allergies 01/24/21 04/21/24 1 Day Ago History mcg/actuation blister powder for ~01/10/22 inhalation geriatric [id number] 1 tab PO DAILY 01/24/21 04/21/24 04/21/24 History levocetirizine 5 mg tablet 5 mg PO DAILY 01/24/21 04/21/24 04/21/24 History metoprolol tartrate 50 mg tablet 50 mg PO BID 01/24/21 04/21/24 04/22/24 History gabapentin 300 mg capsule 300 mg PO BID #60 caps 02/21/21 04/21/24 04/21/24 Rx Walker #1 ea 12/20/21 04/06/24 Unknown Rx CAM boot #1 ea 06/20/23 04/06/24 Unknown Rx celecoxib 200 mg capsule (Celebrex) 200 mg PO DAILY 04/21/24 04/21/24 04/21/24 History metronidazole 0.75 % topical gel 1 applic topical BID PRN Rash 04/21/24 04/21/24 Unknown History Allergies Allergy/AdvReac Type Severity Reaction Status Date / Time shrimp Allergy Severe anaphlactyi Verified 04/21/24 08:27 c sulfamethoxazole Allergy Unknown Unknown Verified 04/21/24 08:27 [From Bactrim] trimethoprim [From Bactrim] Allergy Unknown Unknown Verified 04/21/24 08:27 Current Medications Generic Name Dose Route Start Last Admin Trade Name Freq PRN Reason Stop Dose Admin Sodium Chloride 1,000 mls @ 30 mls/hr 04/22/24 08:15 04/22/24 09:16 Sodium Chloride 0.9% IV 04/23/24 08:14 30 mls/hr .Q24H MATT Administration PFSH Anesthesia Surgical History No pertinent past surgical history Social History Smoking and tobacco/nicotine status: never used tobacco/nicotine Second hand smoke exposure: No Alcohol intake: current Alcohol intake frequency: holidays/special occasions only Alcohol type: wine Substance/Drug Use: never Data Anesthesia Cardiac Studies: No Data to Display
--- NOTE | 2024-04-22 10:04 | ANES.PROC ---
Anesthesia Procedures Procedure/Date: 04/22/24 Nerve Block ^: Nerve Block 1: Main Anesthesia: general anesthesia Time Out Performed: No Consent: requested by attending/covering physician, from patient, from other, risks and benefits reviewed and patient agrees to proceed Nerve block location: popliteal (L) Anesthesia monitors applied: pulse oximetry, EKG, BP cuff and oxygen Nerve block position: supine Anesthetic Used: bupivacaine 0.5%, ropivicaine 0.5% (30 ml) and with decadron (4 mg) Nerve Stimulator Used?: No Interscalene/Femoral BLK: 4 stimuplex 21 g needle used for position and inplane approach, visualize local anesthetic spread and no vascular puncture identified Injection: neg aspiration of heme Patient Tolerated Procedure: well Complications: none
--- NOTE | 2024-04-22 10:40 | P.HPUD_ITS ---
Surgery/Procedure H&P Update DATE OF PROCEDURE: April 22, 2024 DATE H&P PERFORMED: 04/07/24 H&P UPDATE INFORMATION: I have reviewed H&P completed within last 30 days, I have examined patient prior to procedure, No changes to prior documentation and H&P is in [facility] EMR on date indicated PREOP DIAGNOSIS: Left ankle instability PLANNED PROCEDURE: Operation Date: 04/22/24 09:45 Proposed Procedures p Brostrom Procedure/ Left ankle modified brostrom with internal brace(Left) - Craig Hutchins DPM
[2024-04-22] MEDS: ceFAZolin 2,000 MG in sodium chloride 0.9% (plus) 50 ML 100 MG IV (10:48)
--- NOTE | 2024-04-22 11:51 | P.BOP_ITS ---
Date of procedure: 04/22/2024 Surgeon name: Michael BeePEdith Agriculture Inspector(s) name(s): Richard Procedure(s) performed: Left ankle modified Brostr?m with internal brace Description of findings: Torn ATFL left ankle Estimated blood loss: 5 cc Tourniquet time: 37 minutes Specimen(s) removed: None Post-operative diagnosis: Left ankle instability
--- NOTE | 2024-04-22 11:52 | PM.OP ---
Operative Report Date of procedure: April 22, 2024 Pre-op diagnosis: Left ankle chronic ankle instability Post-op diagnosis: Same Post-op findings: Torn ATFL with severe ankle instability Procedure done: Left ankle modified Brostr?m with internal brace CPT 36329 Implants: Dx fiber tack anchors x 2, internal brace all from [employer] medical Surgeon: Craig Hutchins DPM Commission Associate: Richard Estimated blood loss: 5 cc 37 minutes Complications: None Findings: See above Procedure: Patient is a 78-year-old female that has a history of chronic ankle instability of the left ankle. The patient has had the aforementioned chief complaint for some time. Conservative treatment measures have been attempted and the patient has opted for surgical intervention at this time. A lengthy discussion regarding the procedure, including risks and complications has been had with the patient and is noted in the recent clinic note. Written and verbal consent have been obtained. All patient questions have been answered to the patient?s satisfaction. No written or verbal guarantees have been given or implied. The patient has been NPO since midnight. The history has been reviewed and the history and physical is current. The signed consent was confirmed and placed in the patient chart. Patient imaging has been reviewed and is consistent with the diagnosis. Under mild sedation, the patient was brought into the operating room and placed on the table in the supine position. IV antibiotics were given by the anesthesia team as preoperative surgical prophylaxis. General sedation was then performed by the anesthesiateam. A popliteal block was performed by the anesthesia department. A pneumatic tourniquet was then placed about the left thigh. The operative extremity was then prepped and draped in the usual fashion. The extremity was then elevated and exsanguinated before the tourniquet was inflated to 325 mmHg. After inflation, the following procedure was then performed. Attention was directed to the left ankle where a 5 cm curvilinear incision was made to the anterior surface of the lateral malleolus. Dissection was carried down through subcutaneous and superficial fascia to the level of the ankle joint capsule. The ankle joint capsule was then incised and reflected anteriorly from the distal fibula. The anterior talofibular ligament was noted to be thickened with evidence of degeneration and fraying consistent with anterior talofibular ligament attenuation. Dissection was carried out anterior to the anterior talofibular ligament before the sinus tarsi guide was placed in the sinus tarsi. A K wire was driven through the guide and positioning of the wire was confirmed on C-arm imaging. Next a cannulated drill system was used to drill over the wire into the talus in preparation for the internal brace swivel lock anchor. After drilling, the drill hole was tapped before the internal brace swivel lock anchor was inserted into the talus per the manufacture protocol. Next, attention was directed to the anterior fibula where 2 separate holes were drilled for a Dx fiber tack anchor from [employer]. The suture anchors were then inserted per the manufacture protocol. A third hole was then drilled into the fibula in between the prior drill holes. This hole was for fixation of the internal brace. Next, the suture anchors were passed through the anterior talofibular ligament after the redundancy of the ligament has been excised. With the ankle and dorsiflexion eversion the Brostr?m procedure was performed with the suture anchors. Next, the internal brace was fixated to the fibula. The ankle was held in neutral positioning for insertion of this anchor. The ankle was then assessed and stressed and was noted to be stable in comparison to the preoperative exam. The incision was then irrigated with copious amounts of sterile saline before attention was directed to closure. Deep tissue was closed with 3-0 Vicryl followed by subcuticular closure with 4-0 Vicryl and skin closed with 4-0 nylon in horizontal mattress fashion. The tourniquet was let down and good hyperemic response was noted to all digits of the left foot. The incision was dressed with Xeroform, 4 x 4 gauze, Kerlix before being placed in a cam boot. The tourniquet was let down and good hyperemic response was noted to all digits of the left foot. The patient tolerated the procedure and anesthesia well and without complication. The patient was transported from the operating room to the recovery room with vital signs stable and vascular status intact to all digits of the left foot. The patient was given both written and verbal instructions to remain nonweightbearing to the operative extremity, to keep dressings/splint clean, dry and intact and to take pain medication as directed. The patient will follow-up in the outpatient setting at their scheduled appointment. The patient was discharged with my personal number and was instructed to call if any questions or issues should arise. They were discharged home once anesthesia criteria was met.
[2024-04-22 11:55] VITALS: BP 151/86; PULSE 76; RESP 18; TEMP 36.2; O2SAT 100
[2024-04-22 12:00] VITALS: BP 153/90; PULSE 75; RESP 15; O2SAT 100
[2024-04-22 12:05] VITALS: BP 138/76; PULSE 78; RESP 15; O2SAT 96
[2024-04-22 12:10] VITALS: BP 150/85; PULSE 75; RESP 16; O2SAT 95
[2024-04-22 12:15] VITALS: BP 151/95; PULSE 71; RESP 15; O2SAT 92
[2024-04-22 12:20] VITALS: BP 152/87; PULSE 72; RESP 16; TEMP 36.3; O2SAT 93
--- NOTE | 2024-04-22 12:25 | ANE.PACU2 ---
Inpatient post-anesthesia follow up: Airway intact: Yes Vital signs: Temperature 97.3 F Pulse Rate 72 Respiratory Rate 16 Blood Pressure 152/87 Pulse Oximetry 93 Oxygen Delivery Me thod Room Air Oxygen Flow Rate 8 Fraction of Inspir ed Oxygen Hydration adequate: Yes Nausea and vomiting: No Pain level: 1 Mental status: Baseline
== END 2024-04-22 13:41 | disposition home or self-care (01) ==
PROVIDERS: PCP Internal Medicine; Visit Provider Podiatrist Foot & Ankle Surgery
PROC: (CPT 27698; principal; 2024-04-22 09:35)
DX: M25.372 Other instability, left ankle (principal); I10 Essential (primary) hypertension; K21.9 Gastro-esophageal reflux disease without esophagitis; E78.5 Hyperlipidemia, unspecified
CPT/HCPCS: 27698; 73600; 76000; 93005; C1713; J0131; J0690; J1100; J2405; J2704; J2795; J3490; J7030

== ENCOUNTER → 2024-05-07 14:01 | Outpatient (BNVA) | payer MEDICARE, SELFPAY | PROVIDERS: PCP Internal Medicine; Visit Provider Podiatrist Foot & Ankle Surgery | DX: S93.402A Sprain of unspecified ligament of left ankle, initial encounter (principal); M25.572 Pain in left ankle and joints of left foot; M20.42 Other hammer toe(s) (acquired), left foot; X58.XXXA Exposure to other specified factors, initial encounter | CPT/HCPCS: 99024 ==

== ENCOUNTER 2024-05-18 06:00 | Outpatient (CLI) | payer MEDICARE, SELFPAY | END 2024-05-18 06:01 | disposition home or self-care (01) | LOC: SPT 05-19 11:58 | PROVIDERS: PCP Internal Medicine; Visit Provider Podiatrist Foot & Ankle Surgery | DX: Z47.89 Encounter for other orthopedic aftercare (principal) | CPT/HCPCS: 97760; L1902 ==

== ENCOUNTER 2024-05-22 09:56 | Outpatient (RCR) | payer MEDICARE, SELFPAY | END 2024-05-27 23:59 | disposition home or self-care (01) | LOC: SPT 09:56 | PROVIDERS: Visit Provider Podiatrist Foot & Ankle Surgery | DX: M25.362 Other instability, left knee (principal); Z98.890 Other specified postprocedural states | CPT/HCPCS: 97110; 97161 ==

== ENCOUNTER 2024-06-01 12:55 | Outpatient (RCR) | payer MEDICARE, SELFPAY | END 2024-06-27 23:59 | disposition home or self-care (01) | LOC: SPT 12:55 | PROVIDERS: Visit Provider Podiatrist Foot & Ankle Surgery | DX: M25.372 Other instability, left ankle (principal) | CPT/HCPCS: 97110 ==

== ENCOUNTER → 2024-06-02 15:00 | Outpatient (BNVA) | payer MEDICARE, SELFPAY | PROVIDERS: Visit Provider Podiatrist Foot & Ankle Surgery | DX: Z98.890 Other specified postprocedural states (principal); M20.42 Other hammer toe(s) (acquired), left foot; S93.402D Sprain of unspecified ligament of left ankle, subsequent encounter; X58.XXXD Exposure to other specified factors, subsequent encounter | CPT/HCPCS: 99024 ==

== ENCOUNTER → 2024-07-03 08:25 | Outpatient (BNVA) | payer MEDICARE, SELFPAY | PROVIDERS: PCP Internal Medicine; Visit Provider Student in an Organized Health Care Education/Training Program | DX: M17.0 Bilateral primary osteoarthritis of knee (principal) | CPT/HCPCS: 20610; 99213; J3301 ==

== ENCOUNTER 2024-09-23 09:21 | Outpatient (CLI) | payer MEDICARE, SELFPAY ==
--- NOTE | 2024-09-23 09:22 | MM_ITS ---
WS: [id number] BILATERAL 3D TOMOSYNTHESIS DIGITAL SCREENING MAMMOGRAPHY WITH CAD CLINICAL INFORMATION: SCREENING HISTORY: Screening mammogram. History of breast reduction COMPARISON: 2022 TECHNIQUE: Bilateral CC and MLO views. FINDINGS: Scattered fibroglandular densities bilaterally. No suspicious focal mass, asymmetry, calcifications, or architectural distortion. No evidence of malignancy. Coarse dystrophic cluster calcifications bila terally. MM/MM scr tomosynthesis [id number] IMPRESSION: DENSITY: There are scattered areas of fibroglandular density. BI-RADS: 2 - Benign. FOLLOW UP: 1 Year Follow-up Recommend return to annual screening mammography.
== END 2024-09-23 09:22 | disposition home or self-care (01) ==
LOC: RAD 09:22
PROVIDERS: PCP Internal Medicine; Visit Provider Internal Medicine
DX: Z12.31 Encounter for screening mammogram for malignant neoplasm of breast (principal); R92.323 Mammographic fibroglandular density, bilateral breasts; R92.1 Mammographic calcification found on diagnostic imaging of breast
CPT/HCPCS: 77063; 77067

== ENCOUNTER → 2024-10-06 10:32 | Outpatient (BNVA) | payer MEDICARE, SELFPAY | PROVIDERS: PCP Internal Medicine; Visit Provider Physician Assistant | DX: M17.0 Bilateral primary osteoarthritis of knee (principal) | CPT/HCPCS: 99214 ==

== ENCOUNTER → 2024-10-09 09:04 | Outpatient (BNVA) | payer MEDICARE, SELFPAY | PROVIDERS: PCP Internal Medicine; Visit Provider Physician Assistant | DX: M79.642 Pain in left hand; M65.322 Trigger finger, left index finger | CPT/HCPCS: 20600; 73130; 99213; J3301; J3490 ==

== ENCOUNTER → 2024-11-13 09:37 | Outpatient (BNVA) | payer MEDICARE, SELFPAY | PROVIDERS: PCP Internal Medicine; Visit Provider Physician Assistant | DX: Z01.818 Encounter for other preprocedural examination; M17.0 Bilateral primary osteoarthritis of knee | CPT/HCPCS: 36415; 80053; 81001; 85025; 99213 ==

== ENCOUNTER → 2025-04-13 10:20 | Outpatient (BNVA) | payer MEDICARE, SELFPAY | PROVIDERS: PCP Internal Medicine; Visit Provider Physician Assistant | DX: M17.0 Bilateral primary osteoarthritis of knee (principal); Z01.818 Encounter for other preprocedural examination | CPT/HCPCS: 36415; 73560; 73565; 80053; 81001; 85025; 99213 ==

== ENCOUNTER 2025-04-28 15:59 | Outpatient (CLI) | payer MEDICARE, SELFPAY ==
--- NOTE | 2025-04-28 16:45 | CT_ITS ---
WS: [id number] CT LEFT KNEE, NONCONTRAST [facility] TECHNIQUE: Noncontrast CT of the LEFT knee to include the LEFT hip and ankle. CLINICAL INFORMATION: LEFT TOTAL KNEE ARTHROPLASTY FOR SURGICAL PLANNING COMPARISON: None. DLP: 905.[address] scans at [facility] use at least one of these dose optimization techniques: automated exposure control; mA and/or kV adjustment per patient size (includes targeted exams where dose is matched to clinical indication); or iterative reconstruction. FINDINGS: Moderate to advanced tricompartmental arthritis LEFT knee. Hypertrophic changes along the joint line. Hypertrophic patella. Osteopenia. Moderate suprapatellar effusion. Vascular calcification. Sigmoid diverticulosis. CT/CT knee LT [place] [id number] IMPRESSION: Images obtained for preoperative purposes.
== END 2025-04-28 16:00 | disposition home or self-care (01) ==
LOC: RAD 16:04
PROVIDERS: PCP Internal Medicine; Visit Provider Physician Assistant
DX: M17.12 Unilateral primary osteoarthritis, left knee (principal)
CPT/HCPCS: 73700

== ENCOUNTER → 2025-05-11 09:46 | Outpatient (BNVA) | payer MEDICARE, SELFPAY | PROVIDERS: PCP Internal Medicine; Visit Provider Family Medicine | DX: Z01.818 Encounter for other preprocedural examination (principal) | CPT/HCPCS: 93005 ==

== ENCOUNTER 2025-05-17 10:08 | Observation (INO) | payer MEDICARE, SELFPAY ==
[2025-05-17] VITALS (18 sets, daily range): BP systolic 90–130; BP diastolic 52–92; PULSE 66–87; RESP 14–19; TEMP 36.1–36.6; O2SAT 90–97; BMI 30.1
--- NOTE | 2025-05-17 06:54 | W.PM.OPSFHP ---
Same Day Surgery H&P Indication for Procedure/HPI DATE OF PROCEDURE: May 17, 2025 CHIEF COMPLAINT/INDICATIONFOR SURGICAL PROCEDURE: Left knee DJD PREOP DIAGNOSIS: Left knee DJD PLANNED PROCEDURE: Operation Date: 05/17/25 10:00 Proposed Procedures p LEFT Tyshawn Robot Total Knee Arthroplasty(Left) - Jason Marina DO Medications/Allergies* Home Medications ?Medication ?Instructions ?Recorded ?Confirmed ?Type atorvastatin 20 mg tablet 20 mg PO DAILY 01/24/21 05/14/25 History duloxetine 30 mg capsule,delayed 30 mg PO DAILY 01/24/21 05/14/25 History release (Cymbalta) esomeprazole magnesium 20 mg 20 mg PO DAILY 01/24/21 05/14/25 History capsule,delayed release (Nexium) fluticasone propionate 50 2 inh inhalation BID PRN allergies 01/24/21 05/17/25 History mcg/actuation blister powder for inhalation geriatric [id number] 1 tab PO DAILY 01/24/21 05/17/25 History levocetirizine 5 mg tablet 5 mg PO DAILY 01/24/21 05/14/25 History celecoxib 200 mg capsule (Celebrex) 200 mg PO DAILY 04/21/24 05/17/25 History metronidazole 0.75 % topical gel 1 applic topical BID PRN Rash 04/21/24 05/17/25 History semaglutide (weight loss) 0.25 0.25 mg SUBCUT Q7D 05/11/25 05/17/25 History mg/0.5 mL subcutaneous pen injector (Wegovy) metoprolol tartrate 50 mg tablet 50 mg PO BID 05/14/25 05/17/25 History Allergies/Adverse Reactions Allergy/AdvReac Type Severity Reaction Status Date / Time shrimp Allergy Severe anaphlactyi Verified 05/14/25 08:27 c sulfamethoxazole (From Allergy Unknown Unknown Verified 05/14/25 08:27 Bactrim) trimethoprim (From Bactrim) Allergy Unknown Unknown Verified 05/14/25 08:27 Pertinent History/Comorbid Conditions* Surgical History (Updated 05/14/22 @ 10:31 by Liza Neff DO) No pertinent past surgical history Social History Smoking and tobacco/nicotine status: never used tobacco/nicotine Second hand smoke exposure: No Alcohol intake: current Alcohol intake frequency: holidays/special occasions only Alcohol type: wine Substance/Drug Use: never Pertinent Exam Findings alert, oriented x 3, operative site marked and procedure specific exam findings Please refer to detail orthopedic examination on 04/13/2025 listed below: Examination bilateral knees: Examination bilateral knees demonstrates subtle 5 degree valgus deformity is appreciated smooth hip range of motion with no appreciable pain. She has pain on end ranges of motion stable varus valgus stress valgus deformity is correctable on examination. Stable Grace's exam predominant lateral joint line tenderness to palpation but also medial joint line tenderness to palpation appreciated. She does have tenderness palpation over the retropatellar space as well as patellar crepitus on knee range of motion. Mild palpable joint effusion bilaterally. Recommendations Risks and benefits of procedure reviewed and Patient/family agree to proceed Surgery/Procedure today Other Plans: Patient is here today she is failed conservative treatment for left knee degenerative joint disease. She is cleared the preoperative clearance process no change in her overall health since last office visit she has been medically optimized and ready to proceed with surgical invention today for left total knee arthroplasty?Tyshawn robotic assisted. Once again we reviewed the ins and outs of the procedure, the risk the benefits complication alternatives with surgery. Understanding her risk for surgery she elects to proceed with surgical intervention all questions have been answered at this time. We did detailed out the postoperative recovery process and expectations moving forward. Understanding our plan moving forward she elects to proceed with surgical intervention today all questions answered at this time. Coding Level of Care Code Acute Code for Janinag [id number]
[2025-05-17 06:58] LABS: Hematocrit 39.7 % (36-47); Hemoglobin 12.20 g/dL (11.27-16.99); Mean Corpuscular HGB Conc 30.7 g/dL (30-55); Mean Corpuscular Hemoglobin 27.0 pg (27-33); Mean Corpuscular Volume 87.8 fl (85-98); Nucleated Red Blood Cells % 0 %; Platelet Count 312 10^3/cmm (157-399); Red Blood Count 4.52 10^6/uL (3.85-5.65); White Blood Count 7.12 10^3/uL (3.29-11.43)
[2025-05-17] MEDS: acetaminophen 1,000 MG/100 ML PIGGYBACK 400 MG IV ×3 (06:59→23:08)
[2025-05-17 07:14] LABS: Anion Gap 18.8 (5-19); Blood Urea Nitrogen 17 mg/dL (8-23); Calcium 9.5 mg/dL (8.5-10.5); Carbon Dioxide 23 mmol/L (22-29); Chloride 107 mmol/L (98-107); Creatinine Clr Calc Pharmacy 49.8371; Glucose 103 mg/dL (65-115); Osmolality Calculated 302 mOsm/kg (285-295); Potassium 3.8 mmol/L (3.5-5.1); Sodium 145 mmol/L (136-145)
--- NOTE | 2025-05-17 07:19 | ANES.PREANE2 ---
Pre-Anesthetic Assessment Height/Weight: Height 1.6 m Weight 77.111 kg Temp Pulse Resp BP Pulse Ox O2 Del Method 97.0 F L 78 18 105/72 93 Room Air 05/17/25 06:39 05/17/25 06:39 05/17/25 06:39 05/17/25 06:39 05/17/25 06:39 05/17/25 06:39 Preop Diagnosis: Left knee DJD Operation Date: 05/17/25 07:30 Proposed Procedures p LEFT Tyshawn Robot Total Knee Arthroplasty(Left) - Jason Marina DO Familial anesthetic complications: None Was Beta Manolo taken within 24 hours: N/A Was Clonidine taken within 24 hours: N/A Last intake: Intake Last Liquid Date 05/16/25 Last Liquid Time 21:00 Last Solid Date 05/16/25 Last Solid Time 20:00 Social No alcohol and No tobacco Exam alert, oriented x 3, clear to auscultation bilaterally and regular rate & rhythm Airway Dentition: full Musc/skel Osteoarthritis/DJD Anesthetic Plan ASA status: 2 Anesthesia: Regional (specify below) Risk of > 500 ml blood loss (7ml/kg in children): No Medications/Allergies Home Medications ?Medication ?Instructions ?Recorded ?Confirmed ?Last Taken ?Type atorvastatin 20 mg tablet 20 mg PO DAILY 01/24/21 05/14/25 05/16/25 History duloxetine 30 mg capsule,delayed 30 mg PO DAILY 01/24/21 05/14/25 05/16/25 History release (Cymbalta) esomeprazole magnesium 20 mg 20 mg PO DAILY 01/24/21 05/14/25 05/16/25 History capsule,delayed release (Nexium) fluticasone propionate 50 2 inh inhalation BID PRN allergies 01/24/21 05/17/25 05/16/25 History mcg/actuation blister powder for inhalation geriatric xnomoefm-jeco-[id number] 1 tab PO DAILY 01/24/21 05/17/25 05/10/25 History levocetirizine 5 mg tablet 5 mg PO DAILY 01/24/21 05/14/25 05/16/25 History gabapentin 300 mg capsule 300 mg PO BID #60 caps 02/21/21 05/14/25 05/16/25 Rx Walker #1 ea 12/20/21 05/11/25 Unknown Rx CAM boot #1 ea 06/20/23 05/11/25 Unknown Rx celecoxib 200 mg capsule (Celebrex) 200 mg PO DAILY 04/21/24 05/17/25 05/09/25 History metronidazole 0.75 % topical gel 1 applic topical BID PRN Rash 04/21/24 05/17/25 1 Week Ago History ~05/10/25 ASO brace #1 ea 05/18/24 04/13/25 Unknown Rx semaglutide (weight loss) 0.25 0.25 mg SUBCUT Q7D 05/11/25 05/17/25 05/03/25 History mg/0.5 mL subcutaneous pen injector (CinemagramdannaPhanfare) metoprolol tartrate 50 mg tablet 50 mg PO BID 05/14/25 05/17/25 05/17/25 05:30 History Allergies Allergy/AdvReac Type Severity Reaction Status Date / Time shrimp Allergy Severe anaphlactyi Verified 05/14/25 08:27 c sulfamethoxazole (From Allergy Unknown Unknown Verified 05/14/25 08:27 Bactrim) trimethoprim (From Bactrim) Allergy Unknown Unknown Verified 05/14/25 08:27 Current Medications Generic Name Dose Route Start Last Admin Trade Name Freq PRN Reason Stop Dose Admin Lactated Ringer's 500 mls @ 500 mls/hr 05/17/25 06:25 05/17/25 07:00 Lactated Ringers IV 05/17/25 07:24 500 mls/hr .Q1H ONE Administration Sodium Chloride 1,000 mls @ 30 mls/hr 05/17/25 06:30 05/17/25 06:58 Sodium Chloride 0.9% IV 05/18/25 06:29 30 mls/hr .Q24H MATT Administration PFSH Anesthesia Surgical History No pertinent past surgical history Social History Smoking and tobacco/nicotine status: never used tobacco/nicotine Second hand smoke exposure: No Alcohol intake: current Alcohol intake frequency: holidays/special occasions only Alcohol type: wine Substance/Drug Use: never Data Anesthesia 05/17/25 06:41 05/17/25 06:41 Short CBC 05/17/25 Range/Units 06:41 WBC 7.12 (3.29-11.43) 10^3/uL Hgb 12.20 (11.27-16.99) g/dL Hct 39.7 (36-47) % MCV 87.8 (85-98) fl Plt Count 312 (157-399) 10^3/cmm Neut % (Auto) 48.3 % Neut # (Auto) 3.43 (1.8-7.7) 10^3/uL BMP 05/17/25 06:41 Sodium 145 Potassium 3.8 Chloride 107 Carbon Dioxide 23 BUN 17 Creatinine 0.9 Glucose 103 Calcium 9.5 Anesthesia Procedures Nerve Block Nerve Block 1: Main Anesthesia: spinal anesthesia block Time Out Performed: Yes Consent: requested by attending/covering physician, from patient, from other, risks and benefits reviewed and patient agrees to proceed Nerve block location: adductor canal (L) Anesthesia monitors applied: pulse oximetry, EKG, BP cuff and oxygen Nerve block position: supine Anesthetic Used: ropivicaine 0.5% (30 ml) and with decadron (4 mg) Ultrasound used to: recognize landmarks and visualize and ID femerol nerve Nerve Stimulator Used?: No Interscalene/Femoral BLK: 4 stimuplex 21 g needle used for position and inplane approach, visualize local anesthetic spread and no vascular puncture identified Injection: neg aspiration of heme Patient Tolerated Procedure: well Complications: none
--- NOTE | 2025-05-17 07:19 | PC.NURSE ---
0711 Left aductor canal block performed by Dr. Griffin. 5mg decadron, 30ml 0.5% ropivicaine administered
[2025-05-17] MEDS: ceFAZolin 2,000 MG in sodium chloride 0.9% (plus) 50 ML 100 MG IV ×2 (07:45→16:08)
[2025-05-17] MEDS: tranexamic acid 1,000 mg/10mL SDV 1000 MG IV (08:12)
[2025-05-17] MEDS: tranexamic acid 1,000 mg/10mL SDV 1000 MG XX (08:51)
[2025-05-17] MEDS: ROPivacaine 0.2% Premix 100 mL 200 MG INTRA-ARTI (08:51)
--- NOTE | 2025-05-17 09:39 | W.PM.BPON ---
Date of Procedure: 05/17/2025 Surgeon: Jason Marina DO Shop Superintendent(s): Ranjith Marina PA-C Procedure(s) performed: Left total knee arthroplasty?Tyshawn robotic assisted Findings of the procedure(s): Patient was found to have left knee DJD, underwent procedure as planned without issues or complications. Estimated blood loss: 40 mL Specimen(s) removed: Tibia femur and patellar bone cuts removed Post-operative diagnosis: Left knee DJD
--- NOTE | 2025-05-17 09:41 | P.OP_ITS ---
Operative Report Date of procedure: May 17, 2025 Surgeon: Jason Marina DO Customer Quality Specialist: Ranjith Marina PA-C: PA was necessary for assistance in this case with leg positioning retraction and protection of neurovascular structures as well as assistance in implantation wound closure and dressing application. Procedure: Preoperative diagnosis: Left knee degenerative joint disease Post-op diagnosis: Same Procedure done: Left total knee arthroplasty, cemented?robotic assisted Tyshawn Implants: Patrick triathlon size 3 femur CR cemented?left [place] triathlon size?2 tibia universal baseplate cemented [place] triathlon symmetric patella size 29 mm Patrick triathlon polyethylene 10 mm Surgeon: Jason Marina DO Estimated blood?loss: 40 mL Tourniquet 57 minutes IV fluids: 1300 mL Urine output: 100 mL Complications: None Condition: stable Disposition: floor Brief History: Patient is a 79-year-old female with with chronic?left knee degenerative joint d isease.? Patient has been worked up in the outpatient setting in the orthopedic office at this point time through shared decision making given? [id number]-[id number] arthritis as well as failed conservative treatment, and pt would?like to proceed with a?left total knee arthroplasty.? Through shared decision making elected to proceed with surgical intervention for?left total knee arthroplasty?Tyshawn robotic assisted.? We talked about continued conservative treatment and surgical intervention as far as the risk benefits complications alternatives surgical and nonsurgical treatment options.? At this point time understanding patient risks with surgery patient agrees to proceed with surgical intervention.? Once again? risk with surgery include but are not?limited to make it better make it worse blood clot, heart attack, stroke, on the table, infection, injury to nerves or vessels, persistent pain, arthrofibrosis, implant failure.? Understanding these risks patient agrees to proceed with surgical intervention consent was obtained in the preoperative holding area.? All questions answered. Procedure: Patient was seen and evaluated in the preoperative holding area.? Consent was reviewed and signed with patient with plan for?left total knee arthroplasty.? All questions answered.? Correct extremity marked.? Patient seen and evaluated by the anesthesia department and once cleared for surgery was taken back to the operative suite.? Patient was placed into a supine position on the OR table.? All bony prominences were well-padded.? Patient was appropriately secured to the bed.? Patient underwent anesthesia per the anesthesia department.? Patient received anesthesia and? Guzman catheter was placed.? A nonsterile tourniquet was applied to the?left thigh.? At this point in time a final timeout performed.? Patient received appropriate preoperative antibiotics and TXA. Next the?left?lower extremity was then prepped and draped in standard orthopedic fashion. Esmarch tourniquet was used exsanguinate the?left?lower extremity.? Tourniquet was insufflated to 250 mmHg. A standard anterior incision was made over midline of the knee.? Sharp scalpel excision through skin and subcutaneous tissue full-thickness skin flaps were made.? Fascia was elevated off of the extensor retinaculum was stable with medial parapatellar arthrotomy was then made.? The performed standard sequential releases.? Immediately on entry into the joint patient was found to have severe eburnated bone and tricompartmental arthritic changes noted.? With significant osteophyte formation. Patient had significant tricompartmental changes with a valgus appreciated deformity clinically. Next the the patella was then stuffed and the knee was then flexed.?? Juan A was placed superiorly around the anterior aspect of the femur this was freed of synovium and I subsequently then placed by 2 femur pins to establish my femur arrays for the Tyshawn robot.? These were then placed bicortically and? femur array was then appropriately secured with appropriate visualization.? Next attention was turned towards the tibial rays.? These were then drilled sequentially bicortically in parallel fashion and intraincisional.? I then placed my guide as well as my tibial array on in place.? This was appropriately secured and had excellent visualization with the Tyshawn robot.? Next the tibial checkpoint as well as femur checkpoint were then placed.? At this point time I then subsequently established my head center as well as my medial?lateral malleoli as well as my checkpoints.? Next utilizing standard Tyshawn technology I then mapped out the appropriate points and confirmation points around the femur as well as the tibia in standard fashion.? Once this was then done I then removed all osteophytes in preparation for dynamic testing.? All osteophytes were removed as well as I removed the ACL and the PCL was excised due to its significant tearing and degeneration noted.? At this point time the knee was brought into full extension and we performed our standard evaluation of our gap balancing stressing his?ligaments and extension as well as flexion appropriate adjustments were made to have appropriate gap balancing in both flexion and extension.? This plan for final cuts. Patient had a noticeable valgus deformity that we corrected this with our implant positioning based on patient's ligamentous tolerances.? We get a preoperative plan evaluating our implants which was a size 3 femur and a size 2 tibia.? Next we brought in the Tyshawn robot and sequentially made our femur cuts.? All excess bony cuts were then removed.? Finally we made our tibial cut.? Once this was done a standard PCL retractor was then placed into this position I excised the medial and?lateral meniscus.? The tibial cut was then subsequently removed all excess bony debris was removed.? I then utilized a?lamina secondary connector armature and remove the posterior osteophytes.? At this point time sized the tibia and confirmed this was a size 2.? I utilized our blunt probe to establish rotation of tibial implant.? Once this was done I then placed my tibia size 2 trial in appropriate position and then subsequently placed tibial pins to hold this into place placed and trialed up to a size 10 mm poly as well as a size 3 femur which was appropriately impacted in place knee was then subsequently brought into extension. Trials were then assessed,? this was stable with varus valgus stress in extension as well as had symmetrical translation when brought into flexion demonstrating symmetrical gaps. I had excellent balance gaps in flexion and extension with varus and valgus stresses.? At this point I was satisfied with these implants these were then verified and opened on the back table size 2 tibia, size 3 femur,? size 10 mm polythickness.? We did confirm appropriate gap balancing and stresses as well as alignment utilizing? Tyshawn and were satisfied with this plan.? ?At this point time with my trials in place I then towel clip the patella everted this made appropriate measurements subsequently utilizing freehand technique performed by patellar resurfacing this was confirmed to be appropriate resection and subsequently sized to be a 29 mm symmetric.? My drill peg guides were then clamped and appropriate position and appropriate position in the patella for appropriate tracking and parallel with the joint.? Pegs were drilled trial implant was placed and the knee was then subsequently ranged and found to have excellent patellar tracking.? Femur pegs were then drilled.? At this point time all of our trial implants were removed.? All checkpoints as well as guidepins and arrays were removed and appropriate counts made.?Satisfied with our tibial placement rotation I then utilized the keel punch and prepped the tibia.? The wound bed? was thoroughly irrigated and dried and prepped for cementation.? Cement was mixed on the back table.? Once cement was ready this was then covered onto the tibia and the tibial baseplate was then impacted and all excess cement was removed.? Next the polyethylene was then impacted into place on the tibial baseplate.? Next cement was placed onto the femur as well as under the femur implants and impacted in to place and all excess cement was extruded and removed.? Knee was taken into full extension? to clear all excess cement was removed.? Warm saline was placed over the joint.? I then towel clip patella and dried for cementation. cemented the patella into place.? This was all clamped and the cement was allowed to cure.? Thorough irrigation performed with pulse?lavage.? I then placed my periarticular injection while the cement was curing.? Once cured the knee was taken through range of motion and had excellent stability and gaps were balanced in flexion and extension.? Tourniquet was then deflated. hemostasis satisfactory with electrocautery.? Vancomycin powder was placed in wound bed for antibiotic infection prophylaxis. Next I then subsequently closed the capsule with Ethibond suture as well as a running strata fix suture.? Knee was then taken through range of motion 20 times.? Next the skin was then closed in?layered fashion of running stratifix sutures of deep and subcutenous tissue and skin.? ?closed in flexion and Prineo glue was then placed over the incision this allowed to cure.? Incision was covered with Silverlon, with ABDs soft roll and Tommy wrap.? Patient was then awakened from anesthesia and taken to PACU in stable condition. Disposition: Patient taken to PACU in stable condition will be admitted to the floor for pain control PT/OT weight-bear as tolerated?left?lower extremity dressing changes as needed, DVT prophylaxis. Pain control. Patient will receive appropriate postoperative antibiotics. patient will be seen today by the internal medicine team for medical management.? Patient will follow up with the office in 2 weeks.? Patient understands agrees with current plan.? All questions answered.
--- NOTE | 2025-05-17 10:01 | XRR_ITS ---
PROCEDURE INFORMATION: Exam: XR Left Knee Exam date and time: 05/17/2025 10:02 AM Age: 79 years old Clinical indication: Device placement; Other: Hip; Prior surgery; Surgery date: Post-operative (0-2 days); Additional info: Post op TECHNIQUE: Imaging protocol: Radiologic exam of the left knee. Views: 1 or 2 views. COMPARISON: CT knee LT [facility] [id number] 04/28/2025 4:19 PM FINDINGS: Bones/joints: Interval left total knee arthroplasty. No acute fracture. No dislocation. Soft tissues: Soft tissue gas and edema presumably related to recent surgery. XR/XR knee LT 1-2V [id number] IMPRESSION: Interval left total knee arthroplasty as above.
--- NOTE | 2025-05-17 10:25 | ANE.PACU2 ---
Inpatient post-anesthesia follow up: Airway intact: Yes Vital signs: Temperature 97.6 F Pulse Rate 79 Respiratory Rate 18 Blood Pressure 125/66 Pulse Oximetry 93 Oxygen Delivery Me thod Nasal Cannula Oxygen Flow Rate 2 Fraction of Inspir ed Oxygen Hydration adequate: Yes Nausea and vomiting: No Pain level: 1 Mental status: Baseline
--- NOTE | 2025-05-17 10:39 | PM.PACU ---
PACU note Narrative: Patient is a 79-year-old female who just underwent a left total knee arthroplasty. Pt transferred to PACU in stable condition. Dressing is dry. pt is awake and alert. pt can wiggle toes and plantarflex and dorsiflex foot. pt able to perform straight leg raise, Femoral nerve intact. Distal pulses are palpable toes are warm and well-perfused. Cap refill is normal and under 2 seconds. Sensation to foot is intact. Pain is controlled. Exam: awake Disposition: admitted
--- NOTE | 2025-05-17 11:41 | PM.CONSULT ---
Providers/Reason For Consult Consulting Physician/Specialty*: Hospitalist Reason for Consult*: Medical management Attending Physician: Jason Marina DO Primary Care Provider: Stephanie Keita MD History of Present Illness History of Present Illness Eleanor Yañez is a 79 year old patient with a history of hypertension, hyperlipidemia, anemia, hiatal hernia/GERD, depression, irregular heartbeat (remote atrial fibrillation), and prior low vitamin D/B who is now POD #0 following an uncomplicated elective left total knee arthroplasty performed for degenerative joint disease (estimated blood loss 40 mL; 1.3 L IV fluids). The patient reports only mild knee pain, denies chest pain, shortness of breath, nausea, vomiting, fever, chills, diarrhea, rash, or other systemic complaints. They are breathing comfortably on 2 L nasal cannula (normally not on home oxygen). Review of chronic medications confirmed metoprolol (for irregular heartbeat), esomeprazole (for hiatal hernia/heartburn), duloxetine (for depression), gabapentin (for nerve pain), semaglutide (previously for weight control, recently stopped), and celecoxib (for pain, to be held). No current anticoagulant use. The team discussed possible rehab placement, upcoming VTE prophylaxis, repeat hemoglobin checks because of prior anemia (Hgb 10.6 g/dL in March; now 12.2 g/dL), and continued monitoring of chronic conditions. Review of Systems Const: Denies: fever(s), chills, body aches or malaise ENMT: Denies: throat pain Card: Denies: chest pain, edema, pre-syncope or dyspnea on exertion Resp: Denies: dyspnea, productive cough, change in phlegm color or hemoptysis GI: Denies: abdominal pain, nausea, vomiting, diarrhea, constipation, hematochezia or melena : Denies: flank pain, urinary frequency or hematuria Musc: Denies: back pain, joint swelling or joint redness Skin/Breast: Denies: rash or new lesions Neuro: Denies: headache(s) or confusion Medications/Allergies Home Medications ?Medication ?Instructions ?Recorded ?Confirmed ?Last Taken ?Type atorvastatin 20 mg tablet 20 mg PO DAILY 01/24/21 05/14/25 05/16/25 History duloxetine 30 mg capsule,delayed 30 mg PO DAILY 01/24/21 05/14/25 05/16/25 History release (Cymbalta) esomeprazole magnesium 20 mg 20 mg PO DAILY 01/24/21 05/14/25 05/16/25 History capsule,delayed release (Nexium) fluticasone propionate 50 2 inh inhalation BID PRN allergies 01/24/21 05/17/25 05/16/25 History mcg/actuation blister powder for inhalation geriatric [id number] 1 tab PO DAILY 01/24/21 05/17/25 05/10/25 History levocetirizine 5 mg tablet 5 mg PO DAILY 01/24/21 05/14/25 05/16/25 History gabapentin 300 mg capsule 300 mg PO BID #60 caps 02/21/21 05/14/25 05/16/25 Rx Walker #1 ea 12/20/21 05/11/25 Unknown Rx CAM boot #1 ea 06/20/23 05/11/25 Unknown Rx celecoxib 200 mg capsule (Celebrex) 200 mg PO DAILY 04/21/24 05/17/25 05/09/25 History metronidazole 0.75 % topical gel 1 applic topical BID PRN Rash 04/21/24 05/17/25 1 Week Ago History ~05/10/25 ASO brace #1 ea 05/18/24 04/13/25 Unknown Rx semaglutide (weight loss) 0.25 0.25 mg SUBCUT Q7D 05/11/25 05/17/25 05/03/25 History mg/0.5 mL subcutaneous pen injector (Wedannavy) metoprolol tartrate 50 mg tablet 50 mg PO BID 05/14/25 05/17/25 05/17/25 05:30 History Allergies Allergy/AdvReac Type Severity Reaction Status Date / Time shrimp Allergy Severe anaphlactyi Verified 05/14/25 08:27 c sulfamethoxazole (From Allergy Unknown Unknown Verified 05/14/25 08:27 Bactrim) trimethoprim (From Bactrim) Allergy Unknown Unknown Verified 05/14/25 08:27 PFSH Acute PFSH: Surgical History No pertinent past surgical history Social History Smoking and tobacco/nicotine status: never used tobacco/nicotine Second hand smoke exposure: No Alcohol intake: current Alcohol intake frequency: holidays/special occasions only Alcohol type: wine Substance/Drug Use: never Vitals/I&O/Wt Last Vital Signs Temp 97.5 F L 05/17/25 11:05 Pulse 75 05/17/25 11:05 Resp 18 05/17/25 11:05 BP 106/66 05/17/25 11:05 Pulse Ox 96 05/17/25 11:05 O2 Del Method Nasal Cannula 05/17/25 11:05 O2 Flow Rate 2 05/17/25 11:05 05/16/25 05/17/25 05/17/25 22:59 06:59 14:59 Intake Total 1050 / 1050 Output Total 140 / 140 Balance 910 / 910 Weight last 48 hrs Weight 77.111 kg Physical Exam Const: COMMON NORMALS: patient oriented x3 and alert GENERAL APPEARANCE: cooperative ORIENTATION/CONSCIOUSNESS: Yes awake HENMT: COMMON NORMALS: oropharynx normal Neck/C-Spine: COMMON NORMALS: no JVD Resp: COMMON NORMALS: normal respiratory effort and clear to auscultation bilaterally AUSCULTATION: clear to auscultation bilaterally Cardio: COMMON NORMALS: no JVD, regular rhythm, S1 normal heart sound present, S2 normal heart sound present and No murmurs present (Cardio) RHYTHM: regular rhythm HEART SOUNDS: S1 normal heart sound present and S2 normal heart sound present GI: COMMON NORMALS: Normal to inspection, nondistended, normoactive bowel sounds present, Soft to palpation and non-tender PALPATION: Yes Soft to palpation Extremity: COMMON NORMALS: no joint enlargement and no pedal edema OTHER: LLE in post op dressing. Cold pack on. Neuro: COMMON NORMALS: patient oriented x3 and moves all extremities SENSORIUM/ORIENTATION: Yes alert Skin: COMMON NORMALS: no rashes or lesions noted GENERAL SKIN EXAM: no rashes or lesions noted Urinary Catheter Management: Guzman: Cath Placed During This Visit: yes Urinary Catheter Date of Insertion: 05/17/25 Urinary Catheter Time of Insertion: 08:03 Data 05/17/25 06:41 05/17/25 06:41 A&P Assessment and plan 1. Status post total left knee replacement: Uncomplicated left TKA today; stable vitals; EBL 40 mL; requires routine post-op management including VTE prophylaxis and pulmonary hygiene. Reviewed vitals, CBC, BMP, knee x-ray, orthopedic provider note, discussed with orthopedic provider. -Continue postoperative care. -Pending assessment by PT -Continue pain control, with acetaminophen, as needed oral, Toradol, IV Dilaudid for severe breakthrough pain. Celecoxib is held. Reviewed medication risks. Tramadol will increase risk of bleeding and commendation with duloxetine which she takes at home, continued. - Start blood-thinner prophylaxis tomorrow per orthopedics to reduce DVT risk. - Provided and instructed on incentive spirometer use several times per hour to prevent pneumonia. - Consider rehabilitation for post-operative recovery after discharge. - Monitor vital signs and surgical site; contact team if changes occur. Plan: Hypertension : She denies having hypertension. Monitor blood pressure. Had been on metoprolol she states has been taking for irregular heartbeat. Hyperlipidemia : She denies HLD although he is on a statin. History noted in chart though patient uncertain. Continue statin. Anemia : Prior mild anemia (Hgb 10.6 g/dL in March); current Hgb 12.2 g/dL. - Re-check CBC post-operatively to monitor for blood loss?related anemia. Irregular heartbeat / history of possible atrial fibrillation : Remote history; not on anticoagulation. Reports has not had any recurrence in a very long time. - Advised to follow up with primary care provider and to clarify AFib diagnosis and determine need for aspirin or long-term anticoagulation. Hiatal hernia / GERD : Hiatal hernia with heartburn controlled on PPI. - Continue esomeprazole (Nexium). Depression : Chronic depression treated with duloxetine. - Continue duloxetine. Vitamin deficiency: Continue vitamins PDMP PDMP Reviewed: Not Reviewed Consult Attestations Medical Necessity Statement: Continue postoperative care after left total knee arthroplasty reassessment and post discharge planning arrangements in a lady with underlying comorbidities as above. and High MDM includes amount and/or complexity of data reviewed/ordered [ resulted lab(s)/test(s) and other healthcare professional discussion] and described risk of complication, morbidity or mortality of management as documented Diagnoses Status post total left knee replacement Z96.652
[2025-05-17] MEDS: oxyCODONE 5 mg IR Tab/Cap PO (12:48)
[2025-05-17] MEDS: chlorhexidine gluconate 0.12% Btl 473 mL 30 ML MUCOUS MEM ×3 (12:51→20:33)
[2025-05-17] MEDS: tranexamic acid 1,000 MG/100 ML PREMIX 600 MG IV (15:04)
[2025-05-17] MEDS: ondansetron 2 mg/ML SDV 2 mL 4 MG IVP (16:00)
[2025-05-17] MEDS: sennosides-docusate Tablet 2 TAB PO (17:52)
[2025-05-17] MEDS: calcium carb-vit d 600mg/400unit 1 Tablet 1 EACH PO (17:52)
[2025-05-17] MEDS: mupirocin oint 22 gm 1 APPLIC NASAL (17:52)
[2025-05-17] MEDS: ATORVASTATIN 10 MG TABLET 20 MG PO (20:32)
[2025-05-18] VITALS (7 sets, daily range): BP systolic 105–149; BP diastolic 59–75; PULSE 68–78; RESP 17–18; TEMP 36.9; O2SAT 94–97
[2025-05-18 04:57] LABS: Hematocrit 28.6 % (36-47); Hemoglobin 8.90 g/dL (11.27-16.99); Mean Corpuscular HGB Conc 31.1 g/dL (30-55); Mean Corpuscular Hemoglobin 27.6 pg (27-33); Mean Corpuscular Volume 88.5 fl (85-98); Nucleated Red Blood Cells % 0 %; Platelet Count 220 10^3/cmm (157-399); Red Blood Count 3.23 10^6/uL (3.85-5.65); White Blood Count 9.83 10^3/uL (3.29-11.43)
[2025-05-18 05:18] LABS: Anion Gap 14.0 (5-19); Blood Urea Nitrogen 15 mg/dL (8-23); Calcium 8.6 mg/dL (8.5-10.5); Carbon Dioxide 25 mmol/L (22-29); Chloride 108 mmol/L (98-107); Creatinine Clr Calc Pharmacy 44.8534; Glucose 111 mg/dL (65-115); Osmolality Calculated 298 mOsm/kg (285-295); Potassium 4.0 mmol/L (3.5-5.1); Sodium 143 mmol/L (136-145)
[2025-05-18] MEDS: acetaminophen 1,000 MG/100 ML PIGGYBACK 400 MG IV (06:49)
--- NOTE | 2025-05-18 07:38 | P.PN_ITS ---
Subjective 2 Subjective: She had nausea last night but it dissipated on its own. No vomiting. Today she is feeling well. No shortness of breath or trouble breathing. She is having some nasal congestion this morning for which she usually takes Flonase at home. Vitals/I&O/Wt Last Vital Signs Temp 98 F 05/17/25 22:30 Pulse 69 05/18/25 04:30 Resp 17 05/18/25 04:30 BP 125/72 05/18/25 04:30 Pulse Ox 94 05/18/25 04:30 O2 Del Method Room Air 05/18/25 04:30 O2 Flow Rate 2 05/17/25 18:12 05/17/25 05/18/25 05/18/25 22:59 06:59 14:59 Intake Total 2250 / 3300 150 / 3450 Output Total 1000 / 1140 600 / 1740 Balance 1250 / 2160 -450 / 1710 Weight last 48 hrs Weight 77.111 kg Physical Exam 2 Const: COMMON NORMALS: patient oriented x3 and alert GENERAL APPEARANCE: c ooperative ORIENTATION/CONSCIOUSNESS: Yes awake HENMT: COMMON NORMALS: oropharynx normal Neck/C-Spine: COMMON NORMALS: no JVD Resp: COMMON NORMALS: normal respiratory effort and clear to auscultation bilaterally AUSCULTATION: clear to auscultation bilaterally Cardio: COMMON NORMALS: no JVD, regular rhythm, S1 normal heart sound present, S2 normal heart sound present and No murmurs present (Cardio) RHYTHM: regular rhythm HEART SOUNDS: S1 normal heart sound present and S2 normal heart sound present GI: COMMON NORMALS: Normal to inspection, nondistended, normoactive bowel sounds present, Soft to palpation and non-tender PALPATION: Yes Soft to palpation Extremity: COMMON NORMALS: no joint enlargement and no pedal edema OTHER: LLE dressing. Cold pack on. Neuro: COMMON NORMALS: patient oriented x3 and moves all extremities S ENSORIUM/ORIENTATION: Yes alert Skin: COMMON NORMALS: no rashes or lesions noted GENERAL SKIN EXAM: no rashes or lesions noted Urinary Catheter Management: Guzman: Cath Placed During This Visit: yes, but has since been removed by the nurse Reason for Continuing Indwelling Catheter: Decision to DC Catheter Urinary Catheter Date of Insertion: 05/17/25 Urinary Catheter Time of Insertion: 08:03 Date Urinary Catheter Removed: 05/18/25 Time Urinary Catheter Discontinued: 02:00 Data 05/18/25 04:00 05/18/25 04:00 A&P Assessment and plan 1. Status post total left knee replacement: Reviewed vitals, CBC, BMP, orthopedic note. Hemoglobin discussed with her down to 8.9 from initial 12.2, although in March hemoglobin was 10.6. It is possible her actual hemoglobin before surgery was lower than 12.0. Likely component of dilution with IV fluids as well as postoperative loss. Discussed with her need for follow-up for reassessment with primary provider. She has not noticed any outward bleeding, no melena or dark stools, no hematochezia. Knows to seek medical attention in case of any signs or symptoms of bleeding. Encouraged to continue incentive spirometer while mobilization getting closer to her baseline. She tells me she will be going home with home health. She is okay for discharge from hospital standpoint whenever ready per orthopedics. - Stop IV fluid. - Continue postoperative care. - PT - Continue pain control, with acetaminophen, as needed oral, Toradol, IV Dilaudid for severe breakthrough pain. Celecoxib is held. Reviewed medication risks. Tramadol will increase risk of bleeding and commendation with duloxetine which she takes at home, continued. - blood-thinner prophylaxis per orthopedics to reduce DVT risk. - Provided and instructed on incentive spirometer use several times per hour to prevent pneumonia. Plan: Nasal congestion: Will order her usual Flonase, and she states Sudafed works, although we do not have that. Ordered nasal phenylephrine. Hypertension : Reviewed blood pressures, at goal. She denies having hypertension. Had been on metoprolol she states has been taking for irregular heartbeat. Hyperlipidemia : She denies HLD although he is on a statin. History noted in chart though patient uncertain. Continue statin. Anemia : Prior mild anemia (Hgb 10.6 g/dL in March); current Hgb 12.2 g/dL. - Re-check CBC post-operatively to monitor for blood loss?related anemia. Irregular heartbeat / history of possible atrial fibrillation : Remote history; not on anticoagulation. Reports has not had any recurrence in a very long time. - Advised to follow up with primary care provider and to clarify AFib diagnosis and determine need for aspirin or long-term anticoagulation. Hiatal hernia / GERD : Hiatal hernia with heartburn controlled on PPI. - Continue esomeprazole (Nexium). Depression : Chronic depression treated with duloxetine. - Continue duloxetine. Vitamin deficiency: Continue vitamins PDMP PDMP Reviewed: Not Reviewed Attestations 2 Medical Necessity Statement*: Continue postoperative care pending discharge arrangements. Diagnoses Status post total left knee replacement Z96.652
[2025-05-18] MEDS: oxyCODONE 5 mg IR Tab/Cap PO ×3 (07:45→16:53)
[2025-05-18] MEDS: ceFAZolin 2,000 MG in sodium chloride 0.9% (plus) 50 ML 100 MG IV ×2 (08:17)
[2025-05-18] MEDS: calcium carb-vit d 600mg/400unit 1 Tablet 1 EACH PO (08:18)
[2025-05-18] MEDS: multivitamin therapeutic Tablet 1 TAB PO (08:18)
[2025-05-18] MEDS: sennosides-docusate Tablet 2 TAB PO (08:18)
[2025-05-18] MEDS: mupirocin oint 22 gm 1 APPLIC NASAL (08:20)
[2025-05-18] MEDS: chlorhexidine gluconate 0.12% Btl 473 mL 30 ML MUCOUS MEM ×2 (08:20→13:07)
[2025-05-18] MEDS: fluticasone nasal spray 16gm Btl 1 SPRAY NASAL (08:20)
--- NOTE | 2025-05-18 16:04 | P.DS_ITS ---
Discharge Providers Date of Admission: 05/17/25 10:08 Date of Discharge: May 18, 2025 Attending Provider at Admission: Jason Marina DO Attending Provider at Discharge: Jason Marina DO Consults: Hospitalist?Dr. Nixon Primary Care Provider: Stephanie Keita MD Diagnoses at Discharge Discharge Diagnosis 1. Status post total left knee replacement: Reason for Visit Reason for Visit: M17.0 Brief History: Status post left total knee arthroplasty?Tyshawn robotic assist Hospital Course Hospital Course Patient presented to the preoperative holding area with plan for [left] total knee arthroplasty after patient has been worked up in the outpatient setting for failed conservative treatment of [left] knee degenerative joint disease. Once cleared by anesthesia for surgery patient subsequently was taken back to the operative suite underwent anesthesia per anesthesia department and then subsequently underwent a [ ] total knee arthroplasty. Procedure was performed without any complications patient was taken to PACU in stable condition patient recovered well in PACU and then was admitted to the floor postoperatively internal medicine was consulted and on board for medical management and assistance with care. Patient received appropriate PT/OT, postoperative antibiotics, postoperative TXA, pain control, postoperative DVT prophylaxis. Elevation and ice. Patient encouraged for knee range of motion allowed weightbearing as tolerated to the operative lower extremity. Dressing was changed as needed, labs were monitored daily. Patient recovered well p ostoperatively and worked well and progressed well with therapy. It was determined on postoperative day [1] the patient was stable for discharge from an orthopedic standpoint and medicine. Patient was comfortable with discharge and plan was discharged home. Patient received appropriate discharge instructions as well as pain medication and DVT prophylaxis postoperatively. Given appropriate instructions for dressing management. Patient will follow-up with Dr. Marina/orthopedics in the office in 2 weeks. All questions answered. Understand if there is any issues questions or concerns and contact the office. Physical Exam Narrative: Left knee examination: Dressing on in place, clean dry and intact. No evidence of saturation. Patient has normal postoperative swelling and tenderness to palpation to the knee. Compartments are soft compressible,'s calf soft and nontender. Sensations intact to light touch distally. Distal pulses are palpable. Patient is able to wiggle toes as well as plantarflex and dorsiflex ankle. Urinary Catheter Management: Guzman: Cath Placed During This Visit: yes, but has since been removed by the nurse Reason for Continuing Indwelling Catheter: Decision to DC Catheter Urinary Catheter Date of Insertion: 05/17/25 Urinary Catheter Time of Insertion: 08:03 Date Urinary Catheter Removed: 05/18/25 Time Urinary Catheter Discontinued: 02:00 Discharge Data Studies Completed and Pending Completed Studies During Hospitalization Category Date Time Status XR knee LT 1-2V 25335 Stat Exams 05/17/25 10:01 Completed Pending at discharge Category Date Time Status Basic Metabolic Panel AM LABS Lab 05/19/25 04:00 Ordered Basic Metabolic Panel AM LABS Lab 05/20/25 04:00 Ordered Complete Blood Count w/Auto AM LABS Lab 05/19/25 04:00 Ordered Complete Blood Count w/Auto AM LABS Lab 05/20/25 04:00 Ordered Radiology Impressions Knee X-Ray 05/17/25 10:01 IMPRESSION: Interval left total knee arthroplasty as above. Laboratory Results WBC 9.83 10^3/uL (3.29-11.43) 05/18/25 04:00 RBC 3.23 10^6/uL (3.85-5.65) L 05/18/25 04:00 Hgb 8.90 g/dL (11.27-16.99) L 05/18/25 04:00 Hct 28.6 % (36-47) L 05/18/25 04:00 MCV 88.5 fl (85-98) 05/18/25 04:00 MCH 27.6 pg (27-33) 05/18/25 04:00 MCHC 31.1 g/dL (30-55) 05/18/25 04:00 RDW 15.9 % (12.1-15.1) H 05/18/25 04:00 Plt Count 220 10^3/cmm (157-399) 05/18/25 04:00 MPV 10.0 fL (7.4-10.4) 05/18/25 04:00 Neut % (Auto) 73.9 % 05/18/25 04:00 Lymph % (Auto) 13.7 % 05/18/25 04:00 [place] % (Auto) 11.8 % 05/18/25 04:00 Eos % (Auto) 0.0 % 05/18/25 04:00 Baso % (Auto) 0.1 % 05/18/25 04:00 Neut # (Auto) 7.26 10^3/uL (1.8-7.7) 05/18/25 04:00 Lymph # (Auto) 1.4 10^3/uL (0.8-4.8) 05/18/25 04:00 [place] # (Auto) 1.2 10^3/uL (0.2-0.9) H 05/18/25 04:00 Eos # (Auto) 0.0 10^3/uL (0.0-0.8) 05/18/25 04:00 Baso # (Auto) 0.0 10^3/uL (0.0-0.1) 05/18/25 04:00 Nucleated RBC % (auto) 0 % 05/18/25 04:00 Nucleated RBCs # 0.0 /100WBC 05/18/25 04:00 Sodium 143 mmol/L (136-145) 05/18/25 04:00 Potassium 4.0 mmol/L (3.5-5.1) 05/18/25 04:00 Chloride 108 mmol/L (98-107) H 05/18/25 04:00 Carbon Dioxide 25 mmol/L (22-29) 05/18/25 04:00 Anion Gap 14.0 (5-19) 05/18/25 04:00 BUN 15 mg/dL (8-23) 05/18/25 04:00 Creatinine 1.0 mg/dL (0.5-0.9) H 05/18/25 04:00 GFR Calculation Not Reportable 05/18/25 04:00 Glucose 111 mg/dL (65-115) 05/18/25 04:00 Calculated Osmolality 298 mOsm/kg (285-295) H 05/18/25 04:00 Calcium 8.6 mg/dL (8.5-10.5) 05/18/25 04:00 Blood Type O Positive 05/17/25 06:41 Rho(D) Type Rh positive 05/17/25 06:41 Antibody Screen Negative 05/17/25 06:41 Vitals Last Vital Signs Temp 98.5 F 05/18/25 09:58 Pulse 68 05/18/25 09:58 Resp 17 05/18/25 13:07 BP 105/59 05/18/25 09:58 Pulse Ox 94 05/18/25 09:58 O2 Del Method Room Air 05/18/25 09:58 O2 Flow Rate 2 05/17/25 18:12 Discharge Plan Discharge Patient Disposition: Home Health Service Condition: Stable Prescriptions: New Eliquis 2.5 mg tablet 2.5 mg PO BID 14 Days Qty: 28 0RF polyethylene glycol 3350 [Miralax] 17 gram powder in packet 17 g PO BID Qty: 30 0RF cefadroxil 500 mg capsule 500 mg PO BID 7 Days Qty: 14 0RF oxycodone 5 mg tablet 5 mg PO Q6H PRN (Reason: pain postop) 7 Days Qty: 28 0RF Continued gabapentin 300 mg capsule 300 mg PO BID Qty: 60 0RF (DME) Walker See Rx Instructions .Route .MEDSUPPLY Qty: 1 0RF Rx Instructions: As directed duloxetine [Cymbalta] 30 mg capsule,delayed release(DR/EC) 30 mg PO DAILY geriatric [id number] Tablet 1 tab PO DAILY esomeprazole magnesium [Nexium] 20 mg capsule,delayed release(DR/EC) 20 mg PO DAILY atorvastatin 20 mg tablet 20 mg PO DAILY fluticasone propionate 50 mcg/actuation blister with device 2 inh inhalation BID PRN (Reason: allergies) levocetirizine 5 mg tablet 5 mg PO DAILY (DME) CAM boot 7.5 See Rx Instructions .Route .MEDSUPPLY Qty: 1 0RF Rx Instructions: As directed WEIGHT BEARING (DME) ASO brace See Rx Instructions .Route .MEDSUPPLY Qty: 1 0RF Rx Instructions: As directed Wegovy 0.25 mg/0.5 mL pen injector 0.25 mg SUBCUT Q7D metronidazole 0.75 % gel 1 applic topical BID PRN (Reason: Rash) metoprolol tartrate 50 mg tablet 50 mg PO BID Held celecoxib [Celebrex] 200 mg Capsule 200 mg PO DAILY Hold Instructions: Resume on 06/01/25. Sample Preparation Supervisor OK for DC: Hospitalist Discharge Order = DC NOW: Discharge Order (Routine); Ordered 05/18/25 Ordered By: Jason Marina Other Ambulatory Orders: DME: Walker (Order) Location: None Selected Ordered By: Jason Marina Referrals: Shira James FNP [Referring, Nurse Practitioner] - 05/26/25 10:30 am Ranjith Marina PA [Physician Animation Artist, Orthopedics] - 06/08/25 2:45 pm Discharge Diet: Regular Discharge Activity: Limit activity as instructed and Use walker/crutches as inst ructed Patient Instructions: Cefadroxil (By mouth), Oxycodone/Acetaminophen (By mouth), Ondansetron (By mouth), Apixaban (By mouth) (Eliquis), Acute Wound Care (DC), Precautions after Total Joint Replacement Surgery (DC), Opioid Safety (DC), Total Knee Replacement (DC), OB Discharge Report, OB Food/Drug Interaction Guide, Opioid Safety, Post Anesthesia Care, Patient Portal & Severiano Instructions Activity Restrictions/Additional Instructions: Orthopedic discharge instructions May remove Tommy bandage and cotton dressing after 72 hours from surgery Keep incisions clean dry and intact, leave Silverlon bandage dressings on in place for 7 days after that may rinse incisions with warm soapy water pat dry and redress with a dry dressing. May cover Silverlon dressing with Saran wrap for showers if you wish to keep clean dry and intact Patient may weight-bear as tolerate to the operative extremity Utilize walker as needed Encourage knee range of motion Ice and elevate as needed for pain and swelling Take pain medication as prescribed Take antinausea medication as needed Take antibiotic as prescribed for infection prevention Pain medication can cause constipation. take yhqy-pdm-jaslzti stool softeners and or MiraLAX. Take prescribed Eliquis twice daily for the next 14 days for blood clot prevention May supplement for pain with Tylenol [id number] as needed(1000 mg every 8 hours-do not exceed more than 3000mg in 24-hour period) No baths or soaks Follow-up in the orthopedic office in 2 weeks Contact the office for any questions or concerns Continue incentive spirometer until you are mobilizing closer to your baseline. Follow-up with your primary doctor for reassessment of anemia, hemoglobin down to 8.9. In case you notice any bleeding blood in the stool dark black stools, seek medical attention. Seek medical attention in case of any show new concerns. Visit with your primary doctor regarding history of irregular heartbeat, consider whether this was atrial fibrillation in which case discuss consideration of stroke prophylaxis As discussed, caution with long-term celecoxib due to risks. Discharge Attestations Time Spent in Discharge Care*: greater than 30 min Quality Metrics Clinical Quality Measures [ No reported AMI, CVA or VTE this stay] Coding Level of Care Code Acute Code for Chg Fwd Diagnoses Status post total left knee replacement Z96.652 Time Spent (min) 45 Comment Excess time spent with patient's discharge plan and reviewing patient DC instructions/Rx
--- NOTE | 2025-05-18 16:04 | PM.MISC ---
Miscellaneous Note Purpose of Documentation: Patient was seen and evaluated at lunchtime. She is postoperative day 1 from her total knee arthroplasty and she is doing well pertaining to that she has progressed well with therapy and at this point recommending home. Originally patient is in her daughter's plan was for discharge to a rehab facility but after they discussed with case management and given how well patient has done concerned that insurance would likely not cover a discharge to rehab facility we had a long thoughtful discussion with this the daughter was initially very hesitant and reserved on this but after discussion with her as well as the patient through shared decision making they elect to proceed with discharging home with home health care later today. All questions advanced at this time. She is progressing well reviewed all of her discharge instructions as well as medications postoperatively she will follow-up with us in 2 weeks. All questions answered. Jason Marina, DO Orthopedic surgery
== END 2025-05-18 17:50 | disposition home health service (06) ==
LOC: OBGYN 10:09
PROVIDERS: Physician Assistant; Admitting Provider Student in an Organized Health Care Education/Training Program; PCP Internal Medicine; Visit Provider Student in an Organized Health Care Education/Training Program
PROC: 8E0Y0CZ Robotic Assisted Procedure of Lower Extremity, Open Approach (ICD-10-PCS; CPT 27447; principal; 2025-05-17 07:30)
DX: M17.12 Unilateral primary osteoarthritis, left knee (principal); I10 Essential (primary) hypertension; D64.9 Anemia, unspecified; E78.5 Hyperlipidemia, unspecified; K21.9 Gastro-esophageal reflux disease without esophagitis; F32.A Depression, unspecified; I48.91 Unspecified atrial fibrillation
CPT/HCPCS: 27447; 20985; 36415; 51702; 73560; 80048; 85025; 86850; 86900; 97110; 97116; 97161; 97165; 97530; A4216; C1713; C1776; G0378; J0131; J0169; J0690; J1100; J1885; J2405; J2704; J2795; J3010; J3373; J3490; J7030; J7120; J9999; L8699

== ENCOUNTER → 2025-06-08 14:35 | Outpatient (BNVA) | payer MEDICARE, SELFPAY | PROVIDERS: PCP Internal Medicine; Visit Provider Physician Assistant | DX: Z96.652 Presence of left artificial knee joint (principal) | CPT/HCPCS: 73560; 73565; 99024 ==

== ENCOUNTER 2025-06-16 10:11 | Outpatient (RCR) | payer MEDICARE, SELFPAY | END 2025-06-27 23:59 | disposition home or self-care (01) | LOC: SPT 10:11 | PROVIDERS: Visit Provider Physician Assistant | DX: Z47.1 Aftercare following joint replacement surgery (principal); Z96.652 Presence of left artificial knee joint | CPT/HCPCS: 97110; 97161 ==

== ENCOUNTER 2025-06-28 06:30 | Outpatient (RCR) | payer MEDICARE, SELFPAY | END 2025-07-26 07:51 | disposition home or self-care (01) | LOC: SPT 06:30 | PROVIDERS: PCP Internal Medicine; Visit Provider Physician Assistant | DX: Z47.1 Aftercare following joint replacement surgery (principal); Z96.652 Presence of left artificial knee joint | CPT/HCPCS: 97110 ==

== ENCOUNTER → 2025-07-20 14:56 | Outpatient (BNVA) | payer MEDICARE, SELFPAY | PROVIDERS: PCP Internal Medicine; Visit Provider Physician Assistant | DX: Z98.890 Other specified postprocedural states (principal) | CPT/HCPCS: 73560; 73565; 99024 ==

== ENCOUNTER → 2025-09-15 07:59 | Outpatient (BNVA) | payer MEDICARE, SELFPAY | PROVIDERS: PCP Internal Medicine; Visit Provider Physician Assistant | DX: M16.11 Unilateral primary osteoarthritis, right hip (principal); M54.16 Radiculopathy, lumbar region | CPT/HCPCS: 73502; 99213 ==

== ENCOUNTER → 2025-09-30 14:40 | Outpatient (BNVA) | payer MEDICARE, SELFPAY | PROVIDERS: PCP Internal Medicine; Visit Provider Orthopaedic Surgery | DX: M54.16 Radiculopathy, lumbar region (principal); M48.061 Spinal stenosis, lumbar region without neurogenic claudication; G89.29 Other chronic pain | CPT/HCPCS: 72110; 99213 ==

== ENCOUNTER 2025-10-06 15:37 | Outpatient (CLI) | payer MEDICARE, SELFPAY ==
--- NOTE | 2025-10-06 16:00 | MRR_ITS ---
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 COMPARISON: MR lumbar spine wo con* [id number] 06/30/2021 10:34 FINDINGS: Bones/joints: Multilevel degenerative changes with circumferential spur/disc prominence are seen from T9 through L1 levels with resultant moderate canal narrowing/stenosis. Slight retrolisthesis of L2/L3 and L3/L4 is again seen and unchanged. The sagittal STIR sequence demonstrates a 2 cm region of abnormal increased signal involving the right L2-L3 facet area. Also observed L 4 5 is a similar region maximal vertical dimension of the 2.6 cm on image 13 of series 8. Otherwise, the sagittal STIR sequence demonstrates contiguous endplate degenerative changes throughout with no abnormal areas of increased osseous signal as might indicate the presence of the occult bony edema. Spinal cord: Visualized cord, conus medullaris and cauda equina are unremarkable without compression. 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 L1-L2: Moderate broad-based posterior spur/disc degenerative changes are appreciated with moderate degenerative facet changes resulting in moderate canal and mild bilateral foraminal narrowing. L2-L3: Uovvhpbp-vt-nhcdwl broad-based posterior spurring is noted with moderate degenerative facet changes resulting in acpiemvw-hi-xsfybj canal stenosis. Qxhp-tcojtgg-nbzs-right moderate degenerative foraminal stenosis is also noted. L3-L4: Moderate canal narrowing is seen at this level secondary to broad-based posterior spur/disc with marked bilateral degenerative facet changes. Image 17 of series 9 demonstrates a right lateral focal area of spur/disc which might involve the origin of the right L4 root. Marked left and moderate right foraminal degenerative stenoses are also seen. L4-L5: Moderate canal narrowing is seen secondary to broad-based posterior spur/disc with sflz-accryre-nbav-right degenerative facet changes. Suspected right laminectomy is observed. Moderate to marked left moderate right degenerative foraminal stenoses are noted. L5-S1: Broad-based posterior spur/disc is seen lateralizing to the left. Marked left uoypnrfm-fp-kvbgvb right degenerative facet changes are present. Marked left mild right degenerative foraminal stenoses are noted. Soft tissues: Unremarkable. 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 MR/MR lumbar spine wo con* [id number] IMPRESSION: 1. L3-L4 spur/disc involving the lateral recess/origin of the right L4 root. 2. Multilevel fcjdiycv-am-dcpqhl degenerative canal and foraminal stenoses most prominent at L2-L3 and seen to lesser degrees of the other levels, detailed above. 3. Multilevel moderate degenerative canal stenosis along the visualized lower thoracic spine. 4. A nonemergent contrasted MRI study might be helpful for further discrimination in this patient with right L4-L5 laminectomy.
== END 2025-10-06 15:38 | disposition home or self-care (01) ==
PROVIDERS: PCP Internal Medicine; Visit Provider Orthopaedic Surgery
DX: M48.061 Spinal stenosis, lumbar region without neurogenic claudication (principal); M51.16 Intervertebral disc disorders with radiculopathy, lumbar region; M48.04 Spinal stenosis, thoracic region; Z98.890 Other specified postprocedural states
CPT/HCPCS: 72148